=== PATIENT | male | born 1940 | race Caucasian/White ===

== ENCOUNTER → 2016-12-17 | Outpatient (CLI) | payer BC ==
[~2016-12-17] MED LIST: ALLO100T PO; ASPEC81 PO; CLC100 PO; CLR10 PO; FLUT0.15 NAE; LISI40TA PO; LPR25 PO; LPT40 PO; MULT-506 PO; PLV75 PO; PRAS1TAB6 PO; PRVHFAIN PO
[2016-12-17 12:14] LABS: HEMATOCRIT 45.2 % (42-52); MEAN CELL VOLUME 96.6 fL (80-100); MEAN CORPUSCULAR HEMOGLOBIN 30.6 pg (25-34); MEAN CORPUSCULAR HGB CONC 31.6 g/dl (32-36); MEAN PLATELET VOLUME 10.8 fL (7.4-10.4); PLATELET COUNT 276 K/uL (130-400); RED BLOOD COUNT 4.68 M/uL (4.7-6.1); WHITE BLOOD COUNT 6.69 K/uL (4.8-10.8)
[2016-12-17 12:40] LABS: AST/SGOT 34 U/L (15-37); BLOOD UREA NITROGEN 24 mg/dl (7-18); BUN/CREATININE RATIO 18.6 (10-20); CALCIUM 8.6 mg/dl (8.5-10.1); CARBON DIOXIDE 31 mmol/L (21-32); CHLORIDE 107 mmol/L (98-107); GLUCOSE 102 mg/dl (70-99); POTASSIUM 4.1 mmol/L (3.5-5.1); SODIUM 143 mmol/L (136-145)
[2016-12-17 12:42] LABS: URINE PROTIEN/CREAT RATIO 0.1 (0-0.2)
[2016-12-17 12:42] LABS: ALB/GLOB RATIO 1.1 (0.9-2); ALKALINE PHOSPHATASE 92 U/L (45-117); ALT/SGPT 43 U/L (12-78); CHOLESTEROL 154 mg/dl (0-200); CHOLESTEROL/HDL RATIO 1.8; HDL CHOLESTEROL 85 mg/dl; LDL CHOLESTEROL CALCULATED 41 mg/dl; TRIGLYCERIDES 138 mg/dl (0-150); VERY LOW DENSITY LIPOPROT CALC 28 mg/dl
== END | disposition home or self-care (01) ==
LOC: C.LABPVFM 08:02
PROVIDERS: ATTEND Family Medicine
DX: I25.10 Atherosclerotic heart disease of native coronary artery without angina pectoris (principal); I10 Essential (primary) hypertension; E78.00 Pure hypercholesterolemia, unspecified; N18.3 Chronic kidney disease, stage 3 (moderate); M1A.9XX0 Chronic gout, unspecified, without tophus (tophi); J44.9 Chronic obstructive pulmonary disease, unspecified; R73.9 Hyperglycemia, unspecified

== ENCOUNTER 2016-12-19 13:53 | Emergency (ER) | payer BC ==
[~2016-12-19] VITALS: Ht 170.2 cm; Wt 68.9 kg
[~2016-12-19 13:53] MED LIST changes: -CLR10 PO; -FLUT0.15 NAE; -PRAS1TAB6 PO; -PRVHFAIN PO
[2016-12-19 14:03] VITALS: TEMP 37.2; Ht 170.2 cm; Wt 68.9 kg
[2016-12-19 15:40] LABS: BASO % 0.4 %; BASO ABS # 0.03 K/uL (0-0.2); COMPLETE YES; EOS % 3.2 %; HEMATOCRIT 47.5 % (42-52); LYMPH % 17.3 %; LYMPH ABS # 1.35 K/uL (1.2-3.4); MEAN CELL VOLUME 95.2 fL (80-100); MEAN CORPUSCULAR HEMOGLOBIN 30.3 pg (25-34); MEAN CORPUSCULAR HGB CONC 31.8 g/dl (32-36); MEAN PLATELET VOLUME 10.4 fL (7.4-10.4); MONO % 10.4 %; NEUT % 68.7 %; PLATELET COUNT 248 K/uL (130-400); RED BLOOD COUNT 4.99 M/uL (4.7-6.1); WHITE BLOOD COUNT 7.79 K/uL (4.8-10.8)
--- NOTE | 2016-12-19 15:53 | DIAGNOSTIC IMAGING REPORT ---
CHEST ONE VIEW PORTABLE HISTORY: severe hypertension COMPARISON: Chest 11/27/2015. FINDINGS: The heart is borderline enlarged. The lungs are clear. No pleural effusions. No pneumothorax. IMPRESSION: Borderline cardiomegaly. Otherwise, no acute process within the chest. Electronically signed by: Dae Martinez M.D. 12/19/2016 3:51 PM Dictated Date/Time: 12/19/2016 3:50 PM
[2016-12-19 15:54] LABS: PARTIAL THROMBOPLASTIN RATIO 1.1; PROTHROMBIN TIME (PATIENT) 10.8 SECONDS (9.0-12.0)
--- NOTE | 2016-12-19 15:56 | DIAGNOSTIC IMAGING REPORT ---
CT SCAN OF THE BRAIN WITHOUT IV CONTRAST CLINICAL HISTORY: Headache. Hypertension. COMPARISON STUDY: No priors. TECHNIQUE: Unenhanced axial CT scan of the brain is performed from the vertex to the skull base. CT DOSE: 537.48 mGy.cm FINDINGS: Brain parenchyma: There are age-related involutional changes noting mild subcortical and periventricular microangiopathic change. There is no hemorrhage, mass effect, or evidence of acute territorial ischemia by CT criteria. Raza-white matter is preserved. No extra-axial fluid collection is seen. Ventricles, sulci, cisterns: Prominent secondary to involutional change. Intracranial vasculature: There is atherosclerotic calcification of the cavernous carotid and vertebral arteries. Calvarium: Unremarkable. Sinuses and mastoids: The visualized paranasal sinuses are clear. The mastoid air cells are well pneumatized. Orbits: The bony orbits are grossly intact. IMPRESSION: There is no hemorrhage, mass effect, or evidence of acute territorial ischemia by CT criteria. Electronically signed by: Davi Balbuena M.D. 12/19/2016 3:55 PM Dictated Date/Time: 12/19/2016 3:53 PM
[2016-12-19 15:59] LABS: ALT/SGPT 33 U/L (12-78); AST/SGOT 20 U/L (15-37); BLOOD UREA NITROGEN 26 mg/dl (7-18); BUN/CREATININE RATIO 18.5 (10-20); CALCIUM 8.8 mg/dl (8.5-10.1); CARBON DIOXIDE 30 mmol/L (21-32); CHLORIDE 107 mmol/L (98-107); GLUCOSE 112 mg/dl (70-99); POTASSIUM 4.1 mmol/L (3.5-5.1); SODIUM 142 mmol/L (136-145)
[2016-12-19 16:10] LABS: ALKALINE PHOSPHATASE 93 U/L (45-117)
[2016-12-19] MEDS ORDERED: FLUT0.15 NAE (16:17)
[2016-12-19] MEDS ORDERED: PRAS1TAB6 PO (16:17)
[2016-12-19] MEDS ORDERED: CLR10 PO (16:17)
[2016-12-19] MEDS ORDERED: PRVHFAIN PO (16:18)
[2016-12-19 16:37] LABS: LYME DISEASE AB IGM NEG (NEG)
[2016-12-19 16:40] LABS: LYME DISEASE AB IGG NEG (NEG)
[2016-12-19 17:35] LABS: URINE APPEARANCE CLEAR (CLEAR); URINE BILIRUBIN NEG (NEG); URINE COLOR YELLOW; URINE NITRITE NEG (NEG); URINE SPECIFIC GRAVITY 1.021 (1.000-1.030); UROBILINOGEN NEG (NEG)
[2016-12-19 17:36] LABS: MANUAL MICROSCOPIC REQUIRED? NO; REVIEW REQ? NO
[2016-12-19] MEDS ORDERED: HydrALAZINE HCL 20 MG/ML VIAL IV. STA (18:08)
[2016-12-19] MEDS ORDERED: OPTIRAY 320 IV PRN (19:00)
--- NOTE | 2016-12-19 19:26 | DIAGNOSTIC IMAGING REPORT ---
CTA ANGIOGRAPHY OF THE HEAD CLINICAL HISTORY: Headache. Hypertension. COMPARISON STUDY: Head CT performed earlier today. TECHNIQUE: Helical axial images of the head were obtained following uneventful intravenous administration of 102 cc of Optiray 320. CT DOSE: 142.06 mGy.cm FINDINGS: No acute intracranial hemorrhage, midline shift or mass effect is present. Ventricular system is normal. Basilar cisterns are patent. There is moderate plaque within the bilateral cavernous carotids with mild stenosis. No intracranial aneurysm is identified. There is no abrupt vessel cut off. 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 The posterior circulation is also intact. There is no evidence for dissection within the major intracranial vessels. IMPRESSION: 1. No intracranial aneurysm or abrupt vessel cutoff. 2. Moderate atherosclerotic plaque within the bilateral cavernous carotids. No high-grade stenosis. Electronically signed by: Ronnell Dyer M.D. 12/19/2016 7:25 PM Dictated Date/Time: 12/19/2016 7:15 PM
[2016-12-19 21:28] VITALS: BP 180/89; PULSE 56; O2SAT 96
--- NOTE | 2016-12-20 00:31 | EMERGENCY ROOM VISIT NOTE ---
History Report prepared by Vik: Amandeep Ybarra Under the Supervision of: Dr. Raoul De Souza M.D. First contact with patient: 15:13 Chief Complaint: HYPERTENSION Stated Complaint: HIGH BLOOD PRESSURE History of Present Illness The patient is a 76 year old male who presents to the Emergency Room with complaints of sudden hypertension beginning just prior to arrival. He currently rates his discomfort as a 6/10 in severity. The patient associates an intermittent headache and congestion with today's symptoms. He states he was referred to the ED by his physician, in which, he had an appointment for a regular check up. At the appointment, the patient was hypertensive with a blood pressure of 220/100 after his regular morning medication. The patient notes a history of coronary artery disease. He states he has been taking Claritin D and Flonase for the past two weeks for his congestion. The patient notes his blood pressure usually run 120-130 systolic with occasional highs of 140. He states he took his medication two nights ago, and his blood pressure was 113/60. The patient notes he took two Tylenol and an ibuprofen yesterday that relieved his headache. He states he found a tick on himself 2-3 weeks ago, but he does not know how long it was on him for. The patient notes the tick appeared it was ready to fall off by the time he found it. He states he has a history of a heart attack one year ago, in which, he had one stent placed. Pt denies LOC, diaphoresis, visual changes, neck pain, chest pain, breathing difficulties, nausea, vomiting, abdominal pain, back pain, melena, hematochezia, urinary symptoms, numbness, weakness, lymphadenopathy, rash, or other complaints. Source of History: patient Onset: just prior to arrival Position: other (global) Symptom Intensity: 6/10 Quality: other Timing: other (sudden) Associated Symptoms: + headache Note: Associated symptoms: congestion. Review of Systems See HPI for pertinent positives and negatives. A total of ten systems were reviewed and were otherwise negative. Past Medical & Surgical Medical Problems: (1) CAD (coronary artery disease) (2) HTN (hypertension) (3) NSTEMI, initial episode of care (4) PAC (premature atrial contraction) Surgical Problems: (1) H/O percutaneous transluminal coronary angioplasty (2) Stented coronary artery Family History Diabetes mellitus Hypertension Social History Smoking Status: Former Smoker Drug Use: none Marital Status: Housing Status: lives with family Current/Historical Medications Scheduled Allopurinol (Zyloprim), 100 MG PO DAILY Aspirin (Aspirin EC Low Dose), 81 MG PO QAM Atorvastatin (Atorvastatin Calcium), 40 MG PO QAM Fluticasone Propionate (Nasal) (Flonase Allergy Relief), 1 SPRAY FLACO DAILY Lisinopril (Zestril), 20 MG PO BID Metoprolol Tartrate (Lopressor), 25 MG PO BID Prasugrel Hcl (Effient), 10 MG PO 2XWK Scheduled PRN Albuterol (Ventolin Hfa), 2 PUFF PO DIRECTED PRN for Shortness of Breath Loratadine (Claritin), 10 MG PO DAILY PRN for PRN Allergies Coded Allergies: Clopidogrel (Verified Allergy, Intermediate, rash, 12/19/16) Physical Exam Vital Signs Date Time Temp Pulse Resp B/P Pulse Ox O2 Delivery O2 Flow Rate FiO2 12/19/16 21:28 56 18 180/89 96 Room Air 12/19/16 21:08 57 18 177/80 96 12/19/16 20:05 54 18 163/77 99 Room Air 12/19/16 18:31 57 18 181/71 98 Room Air 12/19/16 17:24 50 18 192/83 99 Room Air 12/19/16 16:01 49 18 174/113 99 Room Air 12/19/16 15:33 Room Air 12/19/16 15:29 64 12/19/16 14:03 37.2 50 20 183/81 95 Room Air Physical Exam GENERAL: Awake, alert, well-appearing, in no distress HENT: Normocephalic, atraumatic. Oropharynx unremarkable. EYES: Normal conjunctiva. Sclera non-icteric. NECK: Supple. No nuchal rigidity. FROM. No JVD. RESPIRATORY: Clear to auscultation. CARDIAC: Regular rate, normal rhythm. Extremities warm and well perfused. Pulses equal. ABDOMEN: Soft, non-distended. No tenderness to palpation. No rebound or guarding. No masses. RECTAL: Deferred. MUSCULOSKELETAL: Chest examination reveals no tenderness. The back is symmetrical on inspection without obvious abnormality. There is no CVA tenderness to palpation. No joint edema. LOWER EXTREMITIES: Calves are equal size bilaterally and non-tender. No edema. No discoloration. NEURO: Normal sensorium. No sensory or motor deficits noted. SKIN: No rash or jaundice noted. Medical Decision & Procedures ER Provider Diagnostic Interpretation: X ray results as stated below per my interpretation and radiologist interpretation. Other radiology results as stated below per my review and radiologist interpretation CHEST ONE VIEW PORTABLE HISTORY: severe hypertension COMPARISON: Chest 11/27/2015. FINDINGS: The heart is borderline enlarged. The lungs are clear. No pleural effusions. No pneumothorax. IMPRESSION: Borderline cardiomegaly. Otherwise, no acute process within the chest. Electronically signed by: Dae Martinez M.D. 12/19/2016 3:[address] SCAN OF THE BRAIN WITHOUT IV CONTRAST CLINICAL HISTORY: Headache. Hypertension. COMPARISON STUDY: No priors. TECHNIQUE: Unenhanced axial CT scan of the brain is performed from the vertex to the skull base. CT DOSE: 537.48 mGy.cm FINDINGS: Brain parenchyma: There are age-related involutional changes noting mild subcortical and periventricular microangiopathic change. There is no hemorrhage, mass effect, or evidence of acute territorial ischemia by CT criteria. Raza-white matter is preserved. No extra-axial fluid collection is seen. Ventricles, sulci, cisterns: Prominent secondary to involutional change. Intracranial vasculature: There is atherosclerotic calcification of the cavernous carotid and vertebral arteries. Calvarium: Unremarkable. Sinuses and mastoids: The visualized paranasal sinuses are clear. The mastoid air cells are well pneumatized. Orbits: The bony orbits are grossly intact. IMPRESSION: There is no hemorrhage, mass effect, or evidence of acute territorial ischemia by CT criteria. Electronically signed by: Davi Balbuena M.D. 12/19/2016 3:55 PM CTA ANGIOGRAPHY OF THE HEAD CLINICAL HISTORY: Headache. Hypertension. COMPARISON STUDY: Head CT performed earlier today. TECHNIQUE: Helical axial images of the head were obtained following uneventful intravenous administration of 102 cc of Optiray 320. CT DOSE: 142.06 mGy.cm FINDINGS: No acute intracranial hemorrhage, midline shift or mass effect is present. Ventricular system is normal. Basilar cisterns are patent. There is moderate plaque within the bilateral cavernous carotids with mild stenosis. No intracranial aneurysm is identified. There is no abrupt vessel cut off. 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 The posterior circulation is also intact. There is no evidence for dissection within the major intracranial vessels. IMPRESSION: 1. No intracranial aneurysm or abrupt vessel cutoff. 2. Moderate atherosclerotic plaque within the bilateral cavernous carotids. No high-grade stenosis. Electronically signed by: Ronnell Dyer M.D. 12/19/2016 7:25 PM Laboratory Results 12/19/16 15:20 Red Blood Count 4.99, Mean Corpuscular Volume 95.2, Mean Corpuscular Hemoglobin 30.3, Mean Corpuscular Hemoglobin Concent 31.8, Mean Platelet Volume 10.4, Neutrophils (%) (Auto) 68.7, Lymphocytes (%) (Auto) 17.3, Monocytes (%) (Auto) 10.4, Eosinophils (%) (Auto) 3.2, Basophils (%) (Auto) 0.4, Neutrophils # (Auto ) 5.35, Lymphocytes # (Auto) 1.35, Monocytes # (Auto) 0.81, Eosinophils # (Auto ) 0.25, Basophils # (Auto) 0.03 12/19/16 15:20 Test 12/19/16 15:20 12/19/16 17:20 White Blood Count 7.79 K/uL (4.8-10.8) Red Blood Count 4.99 M/uL (4.7-6.1) Hemoglobin 15.1 g/dL (14.0-18.0) Hematocrit 47.5 % (42-52) Mean Corpuscular Volume 95.2 fL (80-100) Mean Corpuscular Hemoglobin 30.3 pg (25-34) Mean Corpuscular Hemoglobin Concent 31.8 g/dl (32-36) Platelet Count 248 K/uL (130-400) Mean Platelet Volume 10.4 fL (7.4-10.4) Neutrophils (%) (Auto) 68.7 % Lymphocytes (%) (Auto) 17.3 % Monocytes (%) (Auto) 10.4 % Eosinophils (%) (Auto) 3.2 % Basophils (%) (Auto) 0.4 % Neutrophils # (Auto) 5.35 K/uL (1.4-6.5) Lymphocytes # (Auto) 1.35 K/uL (1.2-3.4) Monocytes # (Auto) 0.81 K/uL (0.11-0.59) Eosinophils # (Auto) 0.25 K/uL (0-0.5) Basophils # (Auto) 0.03 K/uL (0-0.2) RDW Standard Deviation 45.6 fL (36.4-46.3) RDW Coefficient of Variation 13.2 % (11.5-14.5) Immature Granulocyte % (Auto) 0.0 % Immature Granulocyte # (Auto) 0.00 K/uL (0.00-0.02) Prothrombin Time 10.8 SECONDS (9.0-12.0) Prothromb Time International Ratio 1.0 (0.9-1.1) Activated Partial Thromboplast Time 27.3 SECONDS (21.0-31.0) Partial Thromboplastin Ratio 1.1 Anion Gap 5.0 mmol/L (3-11) Est Creatinine Clear Calc Drug Dose 40.7 ml/min Estimated GFR () 55.4 Estimated GFR (Non- 47.8 BUN/Creatinine Ratio 18.5 (10-20) Calcium Level 8.8 mg/dl (8.5-10.1) Total Bilirubin 0.4 mg/dl (0.2-1) Direct Bilirubin 0.1 mg/dl (0-0.2) Aspartate Amino Transf (AST/SGOT) 20 U/L (15-37) Alanine Aminotransferase (ALT/SGPT) 33 U/L (12-78) Alkaline Phosphatase 93 U/L (45-117) Total Creatine Kinase 50 U/L (39-308) Creatine Kinase MB < 0.5 ng/ml (0.5-3.6) Creatine Kinase MB Ratio (0-3.0) Troponin I < 0.015 ng/ml (0-0.045) Total Protein 7.0 gm/dl (6.4-8.2) Albumin 3.7 gm/dl (3.4-5.0) Lipase 105 U/L (73-393) Thyroid Stimulating Hormone (TSH) 1.420 uIu/ml (0.300-4.500) Lyme Disease IgG Antibody NEG (NEG) Lyme Disease IgM Antibody NEG (NEG) Urine Color YELLOW Urine Appearance CLEAR (CLEAR) Urine pH 5.0 (4.5-7.5) Urine Specific [place] 1.021 (1.000-1.030) Urine Protein NEG (NEG) Urine Glucose (UA) NEG (NEG) Urine Ketones NEG (NEG) Urine Occult Blood NEG (NEG) Urine Nitrite NEG (NEG) Urine Bilirubin NEG (NEG) Urine Urobilinogen NEG (NEG) Urine Leukocyte Esterase SMALL (NEG) Urine WBC (Auto) 1-5 /hpf (0-5) Urine RBC (Auto) 0-4 /hpf (0-4) Urine Hyaline Casts (Auto) 1-5 /lpf (0-5) Urine Epithelial Cells (Auto) 10-20 /lpf (0-5) Urine Bacteria (Auto) NEG (NEG) Laboratory results reviewed by me Medications Administered Medications (Trade) Dose Ordered Sig/Alfredo Route Start Time Stop Time Status Last Admin Dose Admin Hydralazine HCl (HydrALAZINE INJ) 10 mg NOW STAT IV. 12/19/16 18:08 12/19/16 18:09 DC 12/19/16 18:19 10 MG ECG Indication: other (hypertension) Rate (beats per minute): 50 Rhythm: sinus bradycardia Findings: no acute ischemic change, no ectopy ED Course 1523: The patient was evaluated in room A3. A complete history and physical exam was performed. 1757: Reevaluated and updated the patient at this time, and he is feeling well. The patient notes he does not have symptoms when sitting down, but experienced some headache pains when standing up. 1804: Updated the patient at this time to let him know about the orders for extra imaging. 1807: Ordered Hydralazine HCl 10 mg IV. 1958: Reevaluated the patient, and he is asymptomatic. The patient's blood pressure is 163/77, and he is able to stand up without symptoms. 2035: I spoke to JENNIE Singleton (Cardiology) about the patients case, and he recommended having the patient follow up in the office on Thursday. He also recommended having the patient check his blood pressure at home during the interim. 2052: I reevaluated the patient. Discussed results and discharge instructions: He verbalized understanding and agreement. The patient is ready for discharge. Medical Decision Prior records/ancillary studies reviewed regarding the history above. Triage Nursing notes reviewed and agree them. Additional history obtained from the family. The patient's history was concerning for hypertension and intermittent headache. Differential diagnosis: Etiologies such as hypertensive urgency, hypertensive emergency, benign hypertension, cardiovascular pathology, pheochromocytoma, electrolyte abnormality, renal disease, endorgan damage, sinusitis, migraine, meningitis, ICH, as well as others were entertained. Physical examination: As above. No focal neurologic findings. Clinically the patient looked well. ER treatment provided: IV hydralazine was good control of blood pressure On reassessment the patient felt better. Diagnostic interpretation by me: The electrocardiogram was negative for pathologic change. The labs revealed an unremarkable CBC, coags, chemistry panel, LFTs, TSH, cardiac markers, urinalysis, and Lyme screen Imaging studies: CT scans as above The patient presented with complaints of headache and hypertension. He had significant elevations of his blood pressure in the office and was significantly hypertensive here. The patient takes twice daily metoprolol as well as lisinopril. Initially he was not given any antihypertensives and was observed. His blood pressure did fluctuate somewhat and came down but was still quite high. Without analgesia his headache was nearly resolved. After treatment of his blood pressure the patient had really no symptoms. He stated that only with standing when he feels some pressure in his head. He has no meningeal findings. Patient has no fever. He has no evidence of sinusitis. He is smiling, in good spirits and neurologically intact. I discussed consultation with cardiology and conservative management and the patient and were in agreement. Because of volume in the emergency department the patient was observed for over 7 hours and did exceptionally well. Consultation: A consultation was placed with cardiology, Dr. Walls. The case was discussed and diagnostics were reviewed. As the patient's blood pressure is under control at this point in time he recommended no change to his outpatient management however he would like for him to take his blood pressure several times per day through the weekend and have him follow-up. He recommended if he has any worsening symptoms to have him come back to the emergency department. The patient felt very comfortable with this plan and would prefer to be discharged. By the evaluation outlined above emergent etiologies such as hypertensive emergency, pheochromocytoma, endorgan damage, cardiac ischemia, aortic dissection, pulmonary embolism, pneumonia, pneumothorax, infections, gastrointestinal, meningitis, ICH, aneurysm, subarachnoid hemorrhage, as well as others were deemed relatively unlikely. The patient and for informed about the findings as listed above. All questions were answered and they were pleased with the treatment. Return instructions were outlined and the patient was discharged in stable condition. Outpatient prescription management: No change Referral: The patient was referred back to cardiology on Thursday for a recheck of the current condition. The chart was completed utilizing [employer] Speech voice recognition software. Grammatical errors, random word insertions, pronoun errors, and incomplete sentences are an occasional consequence of this system due to software limitations, ambient noise, and hardware issues. Any formal questions or concerns about the content, text, or information contained within the body of this dictation should be directly addressed to the physician for clarification. Consults Time Called: 2001 Consulting Physician: JENNIE Singleton (Cardiology) Returned Call: [phone] I spoke to JENNIE Singleton (Cardiology) about the patients case, and he recommended having the patient follow up in the office on Thursday. He also recommended having the patient check his blood pressure at home during the interim. Impression Primary Impression: HTN (hypertension) Additional Impression: Headache Scribe Attestation The scribe's documentation has been prepared under my direction and personally reviewed by me in its entirety. I confirm that the note above accurately reflects all work, treatment, procedures, and medical decision making performed by me. Departure Information Dispostion Home / Self-Care Referrals No Doctor, Assigned (PCP) Forms HOME CARE DOCUMENTATION FORM, IMPORTANT VISIT INFORMATION, WORK / SCHOOL INSTRUCTIONS Patient Instructions My [facility] Additional Instructions Continue current medications. Follow up with cardiology on Thursday. Monitor blood pressure at home 3-4 times daily. Record this for cardiology. If blood pressure is persistently elevated beyond 190 on the top number and 100 for the bottom number return to the Emergency Room for reevaluation. Return to the ER for chest pain, headache, passing out, difficulty breathing, fevers, severe neck pain, numbness, tingling, worsening of your condition, or as needed. Problem Qualifiers Primary Impression: HTN (hypertension) Hypertension type: unspecified secondary hypertension Qualified Codes: I15.9 - Secondary hypertension, unspecified Additional Impression: Headache Headache type: unspecified Headache chronicity pattern: episodic headache Intractability: not intractable Qualified Codes: R51 - Headache
== END 2016-12-19 21:40 | disposition home or self-care (01) ==
LOC: C.EDB 13:56 → C.EDA 21:40
DX: I15.9 Secondary hypertension, unspecified (principal); R51 Headache; I25.10 Atherosclerotic heart disease of native coronary artery without angina pectoris; I25.2 Old myocardial infarction; Z83.3 Family history of diabetes mellitus; Z82.49 Family history of ischemic heart disease and other diseases of the circulatory system; Z87.891 Personal history of nicotine dependence; Z79.82 Long term (current) use of aspirin; Z79.899 Other long term (current) drug therapy

== ENCOUNTER → 2016-12-24 | Outpatient (CLI) | payer BC ==
[~2016-12-24] MED LIST changes: -CLC100 PO; +CLR10 PO; +FLUT0.15 NAE; -MULT-506 PO; -PLV75 PO; +PRAS1TAB6 PO; +PRVHFAIN PO
== END | disposition home or self-care (01) ==
LOC: C.LABPVFM 13:12
PROVIDERS: ATTEND Family Medicine
DX: I10 Essential (primary) hypertension (principal)

== ENCOUNTER → 2016-12-26 | Outpatient (CLI) | payer BC ==
--- NOTE | 2016-12-31 06:15 | CODING QUERY MEDICAL NECESSITY ---
SUPPORTING DIAGNOSIS NEEDED Dr. Orta, A supporting diagnosis is required for the test/procedure performed on this patient in order for us to be reimbursed by the patient's insurance. Please provide a supporting diagnosis for the following test/procedure listed below next to the test name along with your signature. *If there is no additional diagnosis for this patient that would support the following test/procedure please document that below next to the test/procedure. Test(s)/Procedure(s) that require a supporting diagnosis: * ([id number]) VITAMIN D ASSAY DIAGNOSIS: DATE OF SERVICE: 12/26/16 Provider Signature: Date: Thank you Tung Deleon [facility] Information Management Once completed, please kindly fax back to [phone] For questions please call [phone]
== END | disposition home or self-care (01) ==
LOC: C.LABPVFM 07:41
PROVIDERS: ATTEND Family Medicine
DX: E34.9 Endocrine disorder, unspecified (principal); E55.9 Vitamin D deficiency, unspecified

== ENCOUNTER → 2016-12-30 | Outpatient (CLI) | payer BC ==
--- NOTE | 2016-12-30 09:44 | DIAGNOSTIC IMAGING REPORT ---
DUPLEX RENAL ARTERY ULTRASOUND CLINICAL HISTORY: Hypertension. COMPARISON STUDY: None. FINDINGS: The peak systolic velocity within the mid right renal artery was 126 cm/s and within the mid left renal artery was 77 cm/s. The peak systolic velocity within the abdominal aorta was 88 cm/s. Bilateral renal veins are patent. Bilateral renal arcuate artery resistive indices were less than 0.78. IMPRESSION: No hemodynamically significant stenosis seen within the bilateral renal arteries. Electronically signed by: Dae Martinez M.D. 12/30/2016 9:43 AM Dictated Date/Time: 12/30/2016 9:41 AM
--- NOTE | 2016-12-30 09:47 | DIAGNOSTIC IMAGING REPORT ---
RENAL ULTRASOUND HISTORY: Hypertension. COMPARISON: Renal ultrasound 03/28/2015. FINDINGS: Right kidney: 9.4 cm. No hydronephrosis. Normal cortical thickness for age. Slight increased cortical echogenicity. A 7 mm cyst. Left kidney: 10.2 cm. No hydronephrosis. Normal cortical thickness for age. Slight increased cortical echogenicity. Bladder: The prostate gland is enlarged measuring 5.3 cm. Bladder trabeculation with a few small right-sided bladder diverticula. The bilateral ureteral jets were identified. IMPRESSION: 1. Slight increased cortical echogenicity bilaterally suggestive of mild medical renal disease. 2. No hydronephrosis. 3. The prostate is enlarged and there is mild bladder trabeculation with a few small right-sided bladder diverticula. Electronically signed by: Dae Martinez M.D. 12/30/2016 9:46 AM Dictated Date/Time: 12/30/2016 9:43 AM
== END | disposition home or self-care (01) ==
LOC: C.ULTR 08:36
PROVIDERS: ATTEND Family Medicine
DX: I10 Essential (primary) hypertension (principal)

== ENCOUNTER 2022-08-30 14:22 | Observation (INO) ==
--- NOTE | 2022-08-30 14:59 | Emergency Department Note ---
Impression & Plan Symptomatic bradycardia, Dizziness ED Provider Note NAME: ROCK JAUREGUI AGE: 82 SEX: M : 1940 ARRIVES VIA: Walk-In INFORMANT: Patient, ED PROVIDER(S): Max Alvarez DO CHIEF COMPLAINT: lightheaded HPI: Patient is an 82-year-old male with a past medical history of CKD, CAD, hyperlipidemia who presents to the ER for dizziness and weakness with exertion. This has beginning worse over the past 2 to 3 weeks. He notes when he rests it goes away. He checked his blood pressure today and could not read his heart rate and consequently came in. He did schedule appointment with cardiology but has not for 2 weeks. No belly pain, nausea, vomiting, or diarrhea. No dysuria, urgency, or frequency. No other exacerbating or remitting factors. PAST MEDICAL HISTORY:See Below PAST SURGICAL HISTORY:See Below FAMILY HISTORY:See Below SOCIAL HISTORY:See Below HOME MEDICATIONS:See Below ALLERGIES:See Below VITALS:See Below PHYSICAL EXAMINATION: GENERAL: Sitting up in bed, alert, well appearing, well nourished, no distress, non-toxic EYE EXAM: normal conjunctiva. OROPHARYNX: no exudate, no erythema, lips, buccal mucosa, and tongue normal and mucous membranes are moist NECK: supple, no nuchal rigidity, no adenopathy, non-tender LUNGS: Clear to auscultation. Normal chest wall mechanics HEART: no murmurs, S1 normal and S2 normal ABDOMEN: abdomen soft, non-tender, normo-active bowel sounds, no masses, no rebound or guarding. UPPER EXTREMITIES: upper extremities are grossly normal. LOWER EXTREMITIES: No pitting edema. Calf cervical bilateral NEURO EXAM: Normal sensorium, cranial nerves II-XII grossly intact, normal speech, no gross weakness of arms, no gross weakness of legs. MEDICAL DECISION MAKING: Patient is an 82-year-old male who presents the ER for feeling lightheaded which is getting worse over the past several weeks. IV was established blood work was obtained. External records were reviewed. Labs show no significant leukocytosis or anemia. BMP with a creatinine 1.68 which is up from a baseline of 1.3. No transaminitis. Troponin was negative. Lipase normal. COVID was negative. Chest x-ray shows no focal infiltrate. EKG did show sinus rhythm at a rate of 64 although with the PVCs which were not conducting rate was only about 30. Patient was symptomatic with this. Based on the patient's presentation complaint and EKG I felt this patient reviewed best served as an inpatient. I discussed all this with Dr. Belle in regards to further work-up and admission and he was agreeable to seeing the patient. Triage Nursing notes reviewed. Limited review of prior medical records performed Vital Signs: reviewed and remarkable for HTN Differential diagnosis: Cardiac ischemia, aortic dissection, pulmonary embolism, pneumothorax, pneumonia, pericarditis, myocarditis, esophageal rupture, GERD, cholecystitis, pancreatitis, musculoskeletal, as well as other pathologies. ER treatment provided: See below Diagnostics interpreted by me include EKG and cardiac monitoring as listed below: -Cardiac Monitoring: An order was placed for continuous cardiac monitoring. The monitor shows a rate of 70 with sinus rhythm. -ECG: Sinus rhythm with bigeminy rate is 60 Normal axis Is present QTC 466 -Laboratory studies:Interpreted by me as stated above in MDM and shown below. Imaging studies: Xrays: As interpreted by me: Portable AP upright 1 view the chest was unremarkable CTs show: none Consultation(s): As described in MDM Procedures:none Critical Care: None Past Med/Surg History Medical History Acid reflux disease Acute bronchitis with bronchospasm Allergic rhinitis Atrioventricular block Benign prostatic hyperplasia with elevated prostate specific antigen (PSA) Benign prostatic hyperplasia with urinary obstruction Bloated abdomen Bronchospasm CAD S/P percutaneous coronary angioplasty Chest tightness Chronic gout Colonic fistula COPD, mild Cough Diverticulosis of colon Elevated blood sugar level Elevated parathyroid hormone Encounter for long-term (current) use of medications Hearing loss HTN (hypertension) Hypercholesterolemia Impotence, organic Lower resp. tract infection Medication monitoring encounter Nodular prostate with urinary obstruction PAC (premature atrial contraction) Premature atrial complex Screening for colon cancer Small intestinal bacterial overgrowth Stage III chronic kidney disease Symptomatic bradycardia Surgical History H/O inguinal hernia repair H/O percutaneous transluminal coronary angioplasty History of colon surgery Stented coronary artery Family History Mother Colorectal cancer Denies family history of Ovarian cancer Prostate cancer Myocardial infarction Breast cancer Social History (Reviewed 06/16/22 @ 10:00 by DEEPTI Pineda Smoking Status: Never smoker Tobacco Type: Pipe and Cigars Age Started Using Tobacco: 28; Age Quit Using Tobacco: 48; Second Hand Exposure: No; Hx Alcohol Use: Yes Hx Substance Use: No Preferred Language: Urdu Communication Ability: Effective Hearing Ability: Use of Hearing Aid Frame Catcher Required: No marital status: Current Living Situation: Spouse current occupational status: retired How many Children do You have: 4 Feels Safe at Home: Yes Childhood Exposure to Second-Hand Smoke: No caffeine: No Dental Care, Regularly: Yes Physical Activity Frequency: Daily Seatbelt Use: always Sunscreen Use: No Allergies Allergies Allergy/AdvReac Type Severity Reaction Status Date / Time clopidogrel Allergy Intermediate rash Verified 08/30/22 17:39 grass pollen Allergy Unknown Congested Verified 08/30/22 17:39 weed pollen Allergy Unknown Congested Verified 08/30/22 17:39 Trees Allergy Unknown Congested Uncoded 08/30/22 17:39 Home Meds Home Medications Medication Instructions Recorded Confirmed albuterol sulfate 90 mcg/actuation 1 puffs inhalation Q6H PRN sob 03/09/19 08/30/22 aerosol inhaler (Ventolin HFA) aspirin 81 mg tablet,delayed 81 mg PO QAM 03/09/19 08/30/22 release (Adult Low Dose Aspirin) acetaminophen 500 mg capsule 1,000 mg PO Q4 PRN Fever Or Pain 03/17/19 08/30/22 cholecalciferol (vitamin D3) 25 1,000 units PO QAM 03/17/19 08/30/22 mcg (1,000 unit) capsule loratadine 10 mg tablet 10 mg PO DAILY PRN Allergy Symptoms 03/17/19 08/30/22 simethicone 80 mg chewable tablet 80 mg PO Q6 PRN bloating,gas 09/13/19 08/30/22 vit B complex 100 combo no.2 100 1 tab PO QAM 11/27/21 08/30/22 mg tablet,extended release (B-100 Complex ER) omeprazole 20 mg tablet,delayed 20 mg PO DAILY PRN Acid Reflux 06/16/22 08/30/22 release allopurinol 100 mg tablet 100 mg PO QAM 08/30/22 08/30/22 lisinopril 10 mg tablet 10 mg PO QAM 08/30/22 08/30/22 tamsulosin 0.4 mg capsule 0.4 mg PO QPM 08/30/22 08/30/22 Previous Rx's Medication Instructions Recorded metoprolol succinate 25 mg 12.5 mg PO DAILY #45 tabs 09/12/21 tablet,extended release 24 hr atorvastatin 40 mg tablet 40 mg PO QAM #90 tabs 11/21/21 fluticasone propionate 50 1 spray intranasal DAILY PRN 12/13/21 mcg/actuation nasal allergy symptoms #16 grams spray,suspension (Flonase Allergy Relief) Results & Data (ED) Vital Signs Vital Signs - 24 hr 08/30/22 14:29 08/30/22 14:49 08/30/22 14:50 Temperature 36.0 C L Temperature Source Temporal Artery Scan Pulse Rate 51 L Pulse Rate [Right Finger] Pulse Rate from SpO2 Sensor Respiratory Rate 20 Respiratory Effort / Characteristics Non-Labored Spontaneous Respiratory Depth Normal Respiratory Pattern Regular Blood Pressure 163/81 H Blood Pressure [Right Arm] Blood Pressure Mean 108 Blood Pressure Mean [Right Arm] Blood Pressure Position Sitting Pulse Oximetry 96 97 Oxygen Delivery Method Room Air Room Air Room Air Sepsis Recent Fever Within 48 Hours No Sepsis New/Unexplained Change in Mental Status No Sepsis Action Taken by Nursing No Action Required Pulse Oximetry Post Tiitration 95 08/30/22 14:50 08/30/22 14:58 08/30/22 14:58 Temperature Temperature Source Pulse Rate 58 L Pulse Rate [Right Finger] 69 Pulse Rate from SpO2 Sensor 57 L Respiratory Rate 27 H 18 Respiratory Effort / Characteristics Respiratory Depth Normal Respiratory Pattern Blood Pressure 190/75 H Blood Pressure [Right Arm] 182/67 H Blood Pressure Mean 113 Blood Pressure Mean [Right Arm] 105 Blood Pressure Position Pulse Oximetry 97 96 Oxygen Delivery Method Room Air Sepsis Recent Fever Within 48 Hours Sepsis New/Unexplained Change in Mental Status Sepsis Action Taken by Nursing Pulse Oximetry Post Tiitration 08/30/22 15:00 08/30/22 15:00 08/30/22 15:15 Temperature Temperature Source Pulse Rate 54 L 53 L Pulse Rate [Right Finger] Pulse Rate from SpO2 Sensor 54 L 53 L Respiratory Rate 20 23 Respiratory Effort / Characteristics Respiratory Depth Respiratory Pattern Blood Pressure 165/76 H Blood Pressure [Right Arm] Blood Pressure Mean 105 Blood Pressure Mean [Right Arm] Blood Pressure Position Pulse Oximetry 98 98 Oxygen Delivery Method Sepsis Recent Fever Within 48 Hours Sepsis New/Unexplained Change in Mental Status Sepsis Action Taken by Nursing Pulse Oximetry Post Tiitration 08/30/22 15:30 08/30/22 15:30 08/30/22 15:45 Temperature Temperature Source Pulse Rate 52 L 51 L Pulse Rate [Right Finger] Pulse Rate from SpO2 Sensor 56 L 51 L Respiratory Rate 16 20 Respiratory Effort / Characteristics Respiratory Depth Respiratory Pattern Blood Pressure 147/76 H Blood Pressure [Right Arm] Blood Pressure Mean 99 Blood Pressure Mean [Right Arm] Blood Pressure Position Pulse Oximetry 97 98 Oxygen Delivery Method Room Air Room Air Sepsis Recent Fever Within 48 Hours Sepsis New/Unexplained Change in Mental Status Sepsis Action Taken by Nursing Pulse Oximetry Post Tiitration 08/30/22 16:00 08/30/22 16:01 08/30/22 16:01 Temperature Temperature Source Pulse Rate 54 L Pulse Rate [Right Finger] Pulse Rate from SpO2 Sensor 51 L 54 L Respiratory Rate 21 18 Respiratory Effort / Characteristics Respiratory Depth Respiratory Pattern Blood Pressure 155/85 H Blood Pressure [Right Arm] Blood Pressure Mean 108 Blood Pressure Mean [Right Arm] Blood Pressure Position Pulse Oximetry 97 99 Oxygen Delivery Method Room Air Room Air Sepsis Recent Fever Within 48 Hours Sepsis New/Unexplained Change in Mental Status Sepsis Action Taken by Nursing Pulse Oximetry Post Tiitration 08/30/22 16:15 08/30/22 16:30 08/30/22 16:30 Temperature Temperature Source Pulse Rate 51 L 51 L Pulse Rate [Right Finger] Pulse Rate from SpO2 Sensor 51 L 51 L Respiratory Rate 14 18 Respiratory Effort / Characteristics Respiratory Depth Respiratory Pattern Blood Pressure 148/78 H Blood Pressure [Right Arm] Blood Pressure Mean 101 Blood Pressure Mean [Right Arm] Blood Pressure Position Pulse Oximetry 98 99 Oxygen Delivery Method Room Air Room Air Sepsis Recent Fever Within 48 Hours Sepsis New/Unexplained Change in Mental Status Sepsis Action Taken by Nursing Pulse Oximetry Post Tiitration 08/30/22 16:45 08/30/22 17:00 08/30/22 17:00 Temperature Temperature Source Pulse Rate 50 L 45 L Pulse Rate [Right Finger] Pulse Rate from SpO2 Sensor 50 L 49 L Respiratory Rate 19 15 Respiratory Effort / Characteristics Respiratory Depth Respiratory Pattern Blood Pressure 179/80 H Blood Pressure [Right Arm] Blood Pressure Mean 113 Blood Pressure Mean [Right Arm] Blood Pressure Position Pulse Oximetry 98 98 Oxygen Delivery Method Room Air Room Air Sepsis Recent Fever Within 48 Hours Sepsis New/Unexplained Change in Mental Status Sepsis Action Taken by Nursing Pulse Oximetry Post Tiitration Laboratory Data 08/30/22 14:46 08/30/22 14:46 Lab Results 08/30/22 08/30/22 08/30/22 Range/Units 14:46 14:46 14:48 WBC 7.35 (4.8-10.8) K/ul RBC 4.69 (4.63-6.08) M/uL Hgb 14.6 (14.0-18.0) g/dl Hct 43.9 (40.1-51.0) % MCV 93.6 (80.0-100.0) fL MCH 31.1 (25.0-34.0) pg MCHC 33.3 (32.0-36.0) g/dL RDW Std Deviation 43.7 (36.4-46.3) fL RDW Coeff of Rudy 12.8 (11.5-14.5) % Plt Count 256 (130-400) K/uL MPV 10.2 (9.4-12.4) fL Immature Gran % (Auto) 0.3 % Neut % (Auto) 61.6 % Lymph % (Auto) 22.6 % [place] % (Auto) 9.9 % Eos % (Auto) 4.4 % Baso % (Auto) 1.2 % Neut # (Auto) 4.53 (1.4-6.5) K/uL Lymph # (Auto) 1.66 (1.2-3.4) K/uL [place] # (Auto) 0.73 (0.24-0.82) K/uL Eos # (Auto) 0.32 (0-0.50) K/uL Baso # (Auto) 0.09 (0-0.2) K/uL Immature Gran # (Auto) 0.02 (0.00-0.02) K/uL Sodium 139 (136-145) mmol/L Potassium 4.4 (3.5-5.1) mmol/L Chloride 106 (98-107) mmol/L Carbon Dioxide 29 (21-32) mmol/L Anion Gap 4 (3-11) BUN 28 H (6-23) mg/dl Creatinine 1.68 H (0.6-1.4) mg/dl Est Cr Clr Drug Dosing 27.4 ml/min Est GFR ( Amer) 42.6 ml/min Est GFR (Non-Af Amer) 36.7 ml/min BUN/Creatinine Ratio 16.7 (10-20) Glucose 106 H (70-99(Fasting)) mg/dl Calcium 8.3 L (8.5-10.1) mg/dl Total Bilirubin 0.4 (0.2-1.0) mg/dl AST 33 (13-39) U/L ALT 37 (7-52) U/L Alkaline Phosphatase 76 (34-104) U/L Troponin I High Sens 10.0 (0-20) pg/ml Total Protein 6.7 (6.0-8.3) gm/dl Albumin 3.9 (3.4-5.0) gm/dl Globulin 2.8 (2.5-4.0) gm/dl Albumin/Globulin Ratio 1.4 (0.9-2) Lipase 20 (11-82) U/L SARS-CoV-2, RNA, NAAT NEGATIVE (NEGATIVE) Imaging Data Radiologist's Impression: Chest X-Ray 08/30/22 14:43 XR chest 1V portable HISTORY: 82 years-old Male Chest pain, nonspecific acute chest pain COMPARISON: Chest radiograph 12/19/2016 TECHNIQUE: AP view of the chest FINDINGS: Cardiac mediastinal and hilar silhouettes are within normal limits. Atherosclerosis of the aorta. No pneumothorax, pleural effusion, airspace consolidation or overt pulmonary edema. Degenerative changes of the shoulders and spine. IMPRESSION: No acute process. ACT 112: Negative or not required by law. The above report was generated using voice recognition software. It may contain grammatical, syntax or spelling errors. Electronically signed by: Joe Limon M.D. 08/30/2022 3:14 PM Discharge Plan Visit Data Chief Complaint: Bradycardia Stated Complaint: LOW HEART RATE ED Provider: Max Alvarez Discharge Problem: Symptomatic bradycardia, Dizziness Patient Disposition: Admitted As Inpatient Discharge Instructions Interventions: ED Discharge Assessment Last Done: 08/30/22 19:53
[2022-08-30 15:02] LABS: Basophils # (auto) 0.09 K/uL (0-0.2); Basophils % (auto) 1.2 %; Eosinophils # (auto) 0.32 K/uL (0-0.50); Eosinophils % (auto) 4.4 %; Hematocrit (blood only) 43.9 % (40.1-51.0); Hemoglobin 14.6 g/dl (14.0-18.0); Immature Granulocytes # (auto) 0.02 K/uL (0.00-0.02); Immature Granulocytes % (auto) 0.3 %; Lymphocytes # (auto) 1.66 K/uL (1.2-3.4); Lymphocytes % (auto) 22.6 %; Mean Corpuscular Hemoglobin 31.1 pg (25.0-34.0); Mean Corpuscular Hgb Conc 33.3 g/dL (32.0-36.0); Mean Corpuscular Volume 93.6 fL (80.0-100.0); Mean Platelet Volume 10.2 fL (9.4-12.4); Monocytes # (auto) 0.73 K/uL (0.24-0.82); Monocytes % (auto) 9.9 %; Neutrophils # (auto) 4.53 K/uL (1.4-6.5); Neutrophils % (auto) 61.6 %; Platelet Count 256 K/uL (130-400); RDW Coefficient of Variation 12.8 % (11.5-14.5); RDW Standard Deviation 43.7 fL (36.4-46.3); Red Blood Count 4.69 M/uL (4.63-6.08); White Blood Count 7.35 K/ul (4.8-10.8)
--- NOTE | 2022-08-30 15:16 | XRay Report ---
XR chest 1V portable HISTORY: 82 years-old Male Chest pain, nonspecific acute chest pain COMPARISON: Chest radiograph 12/19/2016 TECHNIQUE: AP view of the chest FINDINGS: Cardiac mediastinal and hilar silhouettes are within normal limits. Atherosclerosis of the aorta. No pneumothorax, pleural effusion, airspace consolidation or overt pulmonary edema. Degenerative changes of the shoulders and spine. IMPRESSION: No acute process. ACT 112: Negative or not required by law. The above report was generated using voice recognition software. It may contain grammatical, syntax o r spelling errors. Electronically signed by: Joe Limon M.D. 08/30/2022 3:14 PM
[2022-08-30 15:23] LABS: Albumin Globulin Ratio 1.4 (0.9-2); Albumin Level 3.9 gm/dl (3.4-5.0); BUN Creatinine Ratio 16.7 (10-20); Bilirubin,Total 0.4 mg/dl (0.2-1.0); Calcium 8.3 mg/dl (8.5-10.1); Creatinine Clr Calc Pharmacy 27.4 ml/min; Est GFR (African American) 42.6 ml/min; Est GFR (Non-African American) 36.7 ml/min; Globulin 2.8 gm/dl (2.5-4.0); Potassium 4.4 mmol/L (3.5-5.1); Total Protein 6.7 gm/dl (6.0-8.3)
--- NOTE | 2022-08-30 16:31 | History & Physical Report ---
Date of Service August 30, 2022 Assessment & Plan (1) Symptomatic bradycardia: Plan: Symptomatic bradycardia - 2 weeks of exercise intolerance, fatigue, intermittent lightheadedness. 1 episode of neck tightness which resolved, denies any chest pain/chest pressure - EKG with first-degree AV block with bigeminy rate of 60s. In room on monitor rate 45-55 - No leukocytosis, hemoglobin 14.6. Sodium 139, potassium 4.4. Creatinine 1.68, baseline 1.41.6. BSG 106. Troponin was normal at 10. COVID was negative. Hold metoprolol Cardiology consulted for pacer eval Hemodynamically stable at bedside, atropine PRN ordered, no indication for emergent pacing or atropine at time of assessment. Admit to telemetry Optimize magnesium 2.0/magnesium 1.0 Troponin normal on assessment Patient clinically without chest pain TSH pending, Lyme pending History of CAD s/p ROD to left circumflex 2017 Continued on aspirin, lisinopril Hold metoprolol in the setting of bradycardia Initial troponin negative, 2-hour troponin pending Hypertension Continue lisinopril Metoprolol held due to bradycardia CKD 3 Baseline creatinine 1.41.6, admitting creatinine 1.68 BMP tomorrow morning, resume lisinopril if within normal range Euvolemic on exam Hyperlipidemia Continue atorvastatin DVT prophylaxis: Heparin due to CKD with upper normal creatinine Disposition: PCU for symptomatic bradycardia CODE STATUS: Full code Diet: Heart healthy diet, n.p.o. at midnight pending cardiology eval (2) Presence of drug-eluting stent in left circumflex coronary artery: (3) Hyperlipidemia: (4) Antiplatelet or antithrombotic long-term use: (5) Benign hypertension with CKD (chronic kidney disease) stage III: (6) CAD (coronary artery disease): History of Present Illness Primary Care Provider: BAYRON Pineda Kaden is an 82-year-old male with past medical history of CKD, CAD, hyperlipidemia who presents for dizziness and weakness with ambulation for the last 2 to 3 weeks. On initial assessment patient was reportedly with bigeminy with nonconducted second beat resulting in bradycardia of the 30s with lightheadedness. Patient on repeat EKG with first-degree AV block with bigeminy rate of 60s. QTc 466. MT 234. EKG 02/2019 sinus rhythm with PACs, MT 180, rate 87. Patient was seen by cardiology 09/12/2021 for follow-up of coronary artery disease. At the time he was having normal exercise tolerance without angina or syncopal symptoms. Kaden reports that he felt normal this year while hunting, until about 2 weeks ago. He noticed significant exercise intolerance with very easy fatigue and almost no energy. He had a couple of episodes of lightheadedness. He reports that just today he had a feeling of flushing/pressure in his neck/upper chest, but denies chest pressure/chest pain. He checked his blood pressure which was normal, but his heart rate was reading as an error on his monitor, and when he was able to finally check it his pulse was in the 30s. At time of hospitalist assessment his rate is ranging from 4550, and he reports he is having no symptoms including no shortness of breath, chest pain, chest pressure, flushing, lightheadedness, dizziness. He reports he has been on 1/2 tablet of metoprolol in the last year which he has not missed any doses of, has not taken extra doses of. 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 06/2019 Mobile Tele: isolated nonsustained episodes of V. tach, 6.7% of recorded beats, VPD's, APD's, no complex atrial arrhythmia. No significant pauses were appreciated. First-degree AV block and second-degree AV block Mobitz 1 were seen. Junctional beats were seen. Maximum RR was 2.28 seconds. Medical History: Reviewed Medications: Reviewed Surgical History: Reviewed Allergies: Reviewed Social History: 12 drinks of carline versus whiskey daily, no alcohol during , Has not had any problems with withdrawal/tremors or DTs in the past Code Status: Full code Allergies Allergy/AdvReac Type Severity Reaction Status Date / Time clopidogrel Allergy Intermediate rash Verified 06/16/22 08:31 grass pollen Allergy Unknown Verified 06/16/22 08:31 weed pollen Allergy Unknown Verified 06/16/22 08:31 Trees Allergy Unknown Uncoded 06/16/22 08:31 Home Medications Medication Instructions Recorded Confirmed Type albuterol sulfate 90 mcg/actuation 1 puffs inhalation Q6H PRN sob 03/09/19 06/16/22 History aerosol inhaler (Ventolin HFA) aspirin 81 mg tablet,delayed 81 mg PO DAILY 03/09/19 06/16/22 History release (Adult Low Dose Aspirin) acetaminophen 500 mg capsule 1,000 mg PO .COMPLEX PRN 03/17/19 06/16/22 History cholecalciferol (vitamin D3) 25 1,000 units PO DAILY 03/17/19 06/16/22 History mcg (1,000 unit) capsule loratadine 10 mg tablet 10 mg PO DAILY PRN 03/17/19 06/16/22 History melatonin 5 mg capsule mg PO PRN 04/15/19 06/16/22 History simethicone 80 mg chewable tablet 40 mg PO .COMPLEX 09/13/19 06/16/22 History lisinopril 10 mg tablet 10 mg PO DAILY #90 tabs 09/12/21 08/30/22 Rx metoprolol succinate 25 mg 12.5 mg PO DAILY #45 tabs 09/12/21 08/30/22 Rx tablet,extended release 24 hr atorvastatin 40 mg tablet 40 mg PO QAM #90 tabs 11/21/21 08/30/22 Rx tamsulosin 0.4 mg capsule 0.4 mg PO DAILY #90 caps 11/27/21 08/30/22 Rx vit B complex 100 combo no.2 100 tab PO 11/27/21 06/16/22 History mg tablet,extended release (B-100 Complex ER) fluticasone propionate 50 1 spray intranasal DAILY PRN 12/13/21 06/16/22 Rx mcg/actuation nasal allergy symptoms #16 grams spray,suspension (Flonase Allergy Relief) allopurinol 100 mg tablet 100 mg PO DAILY #90 tabs 03/17/22 06/16/22 Rx omeprazole 20 mg tablet,delayed 20 mg PO DAILY PRN 06/16/22 06/16/22 History release Past Med/Surg History Medical History Acid reflux disease Acute bronchitis with bronchospasm Allergic rhinitis Atrioventricular block Benign prostatic hyperplasia with elevated prostate specific antigen (PSA) Benign prostatic hyperplasia with urinary obstruction Bloated abdomen Bronchospasm CAD S/P percutaneous coronary angioplasty Chest tightness Chronic gout Colonic fistula COPD, mild Cough Diverticulosis of colon Elevated blood sugar level Elevated parathyroid hormone Encounter for long-term (current) use of medications Hearing loss HTN (hypertension) Hypercholesterolemia Impotence, organic Lower resp. tract infection Medication monitoring encounter Nodular prostate with urinary obstruction PAC (premature atrial contraction) Premature atrial complex Screening for colon cancer Small intestinal bacterial overgrowth Stage III chronic kidney disease Symptomatic bradycardia Surgical History H/O inguinal hernia repair H/O percutaneous transluminal coronary angioplasty History of colon surgery Stented coronary artery Family History Mother Colorectal cancer Denies family history of Ovarian cancer Prostate cancer Myocardial infarction Breast cancer Social History Smoking Status: Never smoker Tobacco Type: Pipe and Cigars Age Started Using Tobacco: 28; Age Quit Using Tobacco: 48; Second Hand Exposure: No; Hx Alcohol Use: Yes Hx Substance Use: No Preferred Language: Nepali Communication Ability: Effective Hearing Ability: Use of Hearing Aid 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 NAD. Cooperative. HEENT: Atraumatic, normocephalic. Vision/hearing intact Pulm: CTAB A&P. -wheezes, -rales, -rhonchi. Symmetrical chest rise. No increased work of breathing. No respiratory distress. Cardiac: Irregular, bradycardic. Radial pulses intact and symmetrical. No JVD Abdominal: Nontender, nondistended, soft. BS present. Extremities: Warm, dry. Moves all extremities equally. 5/5 swatch paster strength, ankle dorsiflexion/plantarflexion, hip flexion. Sensation intact to soft touch in upper and lower extremities bilaterally. Results & Data Results & Data ([facility]) Vital Signs (Past 12 Hours) Vital Signs Temp Pulse Pulse Resp BP BP Pulse Ox 08/30/22 16:15 51 L 14 98 08/30/22 16:01 155/85 H 08/30/22 16:01 54 L 18 99 08/30/22 16:00 21 97 08/30/22 15:45 51 L 20 98 08/30/22 15:30 52 L 16 97 08/30/22 15:30 147/76 H 08/30/22 15:15 53 L 23 98 08/30/22 15:00 54 L 20 98 08/30/22 15:00 165/76 H 08/30/22 14:58 190/75 H 08/30/22 14:58 58 L 18 96 08/30/22 14:50 69 27 H 182/67 H 97 08/30/22 14:50 08/30/22 14:49 97 08/30/22 14:29 36.0 C L 51 L 20 163/81 H 96 O2 Del Method 08/30/22 16:15 Room Air 08/30/22 16:01 08/30/22 16:01 Room Air 08/30/22 16:00 Room Air 08/30/22 15:45 Room Air 08/30/22 15:30 Room Air 08/30/22 15:30 08/30/22 15:15 08/30/22 15:00 08/30/22 15:00 08/30/22 14:58 08/30/22 14:58 08/30/22 14:50 Room Air 08/30/22 14:50 Room Air 08/30/22 14:49 Room Air 08/30/22 14:29 Room Air PG Care Time/CCT Total # of Minutes Spent Total Time Spent with Patient: Total time spent is greater than 50% in coordination of care (as documented) at patient's floor/unit and/or counseling patient: Coding Level of Care Code 19026 INT INP/OBS CARE 2/55MIN Diagnoses Symptomatic bradycardia R00.1 Presence of drug-eluting stent in left circumflex coronary artery Z95.5 Hyperlipidemia E78.5 Antiplatelet or antithrombotic long-term use Z79.02 Benign hypertension with CKD (chronic kidney disease) stage III I12.9; N18.3 CAD (coronary artery disease) I25.10
[2022-08-30] MEDS ORDERED: ATROPINE SULFATE 0.1 MG/ML 10ML SYR IV PRN (19:54)
[2022-08-30] MEDS ORDERED: ALBUTEROL HFA 8 GM INHALER INH PRN (19:54)
[2022-08-30] MEDS ORDERED: POLYETHYLENE (MIRALAX) 17 GM PACK PO PRN (19:54)
[2022-08-30 21:16] LABS: Lyme Ab IgG w/WB Rflx Negative (Negative); Lyme Ab IgM w/WB Rflx Negative (Negative)
[2022-08-30] MEDS: HEPARIN SOD 5,000 UNIT/0.5 ML VIAL SQ SCH (23:13)
[2022-08-31 06:17] LABS: Basophils # (auto) 0.11 K/uL (0-0.2); Eosinophils # (auto) 0.45 K/uL (0-0.50); Eosinophils % (auto) 8.2 %; Hematocrit (blood only) 39.4 % (40.1-51.0); Hemoglobin 13.3 g/dl (14.0-18.0); Immature Granulocytes # (auto) 0.01 K/uL (0.00-0.02); Immature Granulocytes % (auto) 0.2 %; Lymphocytes # (auto) 1.54 K/uL (1.2-3.4); Lymphocytes % (auto) 27.9 %; Mean Corpuscular Hemoglobin 31.1 pg (25.0-34.0); Mean Corpuscular Hgb Conc 33.8 g/dL (32.0-36.0); Mean Corpuscular Volume 92.1 fL (80.0-100.0); Mean Platelet Volume 10.5 fL (9.4-12.4); Monocytes # (auto) 0.58 K/uL (0.24-0.82); Monocytes % (auto) 10.5 %; Neutrophils # (auto) 2.83 K/uL (1.4-6.5); Neutrophils % (auto) 51.2 %; Platelet Count 244 K/uL (130-400); RDW Coefficient of Variation 12.4 % (11.5-14.5); RDW Standard Deviation 41.9 fL (36.4-46.3); Red Blood Count 4.28 M/uL (4.63-6.08); White Blood Count 5.52 K/ul (4.8-10.8)
[2022-08-31] MEDS: HEPARIN SOD 5,000 UNIT/0.5 ML VIAL SQ SCH ×2 (06:23→14:34)
[2022-08-31 06:34] LABS: BUN Creatinine Ratio 17.1 (10-20); Calcium 7.9 mg/dl (8.5-10.1); Creatinine Clr Calc Pharmacy 35.4 ml/min; Est GFR (African American) 53.1 ml/min; Est GFR (Non-African American) 45.8 ml/min; Potassium 3.8 mmol/L (3.5-5.1)
--- NOTE | 2022-08-31 07:51 | Hospitalist Progress Note ---
Date of Service August 31, 2022 Assessment & Plan (1) Symptomatic bradycardia: (2) Presence of drug-eluting stent in left circumflex coronary artery: (3) Hyperlipidemia: (4) Antiplatelet or antithrombotic long-term use: (5) Benign hypertension with CKD (chronic kidney disease) stage III: (6) CAD (coronary artery disease): Rosie Alfonso is an 82 yo M w/ history of reflux, CAD s/p ROD to LCx (2017), gout, COPD, diverticulosis, hearing loss, HTN, hypercholesterolemia, SIBO, and CKDIII who was seen in the ED 08/30/22 for exercise intolerance and fatigue w/ associated lightheadedness that had been occurring for 2-3 weeks. Patient was found to be experiencing symptomatic bradycardia w/o chest pain or dyspnea and was admitted for evaluation and management. Symptomatic Bradycardia - 2 weeks of exercise intolerance, fatigue, intermittent lightheadedness. 1 episode of neck tightness (resolved) w/o CP or dyspnea - EKG 08/30: 1st Degree AV Block, rate 64, regular sinus w/ PVCs in bigeminy. ED monitor rate 45-55. - Labs 08/30: No leukocytosis, Hgb 14.6, Na 139, K 4.4, Cr 1.68 H, baseline 1.41.6, BSG 106, Troponin negative 1446, COVID was negative. Hemodynamically stable at bedside, Atropine PRN ordered Admit to telemetry Optimize magnesium to 2.0 TSH pending, Lyme pending --- Continue Metoprolol Hold --- Cardiology consulted, appreciate recommendations CAD s/p ROD to LCx in 2018 Continued on home aspirin and lisinopril Hold metoprolol in the setting of bradycardia Initial troponin negative --- Repeat Trop Hypertension Continue lisinopril Metoprolol held due to bradycardia CKD 3 Baseline creatinine 1.41.6, admitting creatinine 1.68 BMP tomorrow morning, resume lisinopril if within normal range Euvolemic on exam --- Cr 1.4/GFR 45, ok to resume Lisinopril Hyperlipidemia Continue atorvastatin DVT prophylaxis: Heparin due to CKD with upper normal creatinine Disposition: PCU for symptomatic bradycardia CODE STATUS: Full code Diet: Heart healthy diet, n.p.o. at midnight pending cardiology eval Admission and Anticipated Discharge Date Admission Date: August 30, 2022 Luna Alfonso is an 82 yo M w/ history of reflux, CAD s/p ROD to LCx (2018), gout, COPD, diverticulosis, hearing loss, HTN, hypercholesterolemia, SIBO, and CKDIII who was seen in the ED 08/30/22 for exercise intolerance and fatigue w/ associated lightheadedness that had been occurring for 2-3 weeks. Patient was found to be experiencing symptomatic bradycardia w/o chest pain or dyspnea and was admitted for evaluation and management. Review of Systems Review of Systems: As per HPI Physical Exam Physical Exam: Gen: NAD, alert, interactive. AO x 3 HEENT: Supple, no LAD, no thyromegaly, no JVD Resp:Non-labored, no wheezing/rhonchi/rales, CTAB CV:[irregular/bradycardic], normal S1/S2, no M/R/G Abd: Soft, non-distended, no TTP, normoactive bowels, no masses Extr: 2+ dp bilaterally, no edema Skin: No rashes lesions or erythema Results & Data Results & Data ([facility]) Vital Signs (Past 12 Hours) Vital Signs Temp Pulse Pulse Resp BP BP Pulse Ox 08/31/22 02:55 36.6 C 57 L 18 159/77 H 92 08/31/22 00:55 08/31/22 00:50 51 L 08/31/22 00:47 36.4 C L 48 L 14 182/76 H 97 08/31/22 00:34 08/30/22 20:30 55 L 16 95 08/30/22 20:30 149/75 H 08/30/22 20:15 57 L 18 97 08/30/22 20:00 57 L 18 97 08/30/22 20:00 192/91 H 08/30/22 19:45 70 22 98 O2 Del Method O2 Del Method 08/31/22 02:55 Room Air 08/31/22 00:55 Room Air 08/31/22 00:50 08/31/22 00:47 Room Air 08/31/22 00:34 Room Air 08/30/22 20:30 08/30/22 20:30 08/30/22 20:15 08/30/22 20:00 08/30/22 20:00 08/30/22 19:45 Laboratory Results Abnormal lab results 08/30/22 08/31/22 08/31/22 Range/Units 14:46 05:33 05:33 RBC 4.28 L (4.63-6.08) M/uL Hgb 13.3 L (14.0-18.0) g/dl Hct 39.4 L (40.1-51.0) % BUN 28 H 24 H (6-23) mg/dl Creatinine 1.68 H (0.6-1.4) mg/dl Glucose 106 H (70-99(Fasting)) mg/dl Calcium 8.3 L 7.9 L (8.5-10.1) mg/dl Diagnostic Findings Chest X-Ray 08/30/22 14:43 XR chest 1V portable HISTORY: 82 years-old Male Chest pain, nonspecific acute chest pain COMPARISON: Chest radiograph 12/19/2016 TECHNIQUE: AP view of the chest FINDINGS: Cardiac mediastinal and hilar silhouettes are within normal limits. Atherosclerosis of the aorta. No pneumothorax, pleural effusion, airspace consolidation or overt pulmonary edema. Degenerative changes of the shoulders and spine. IMPRESSION: No acute process. ECG Additional Comments: EKG 08/30: 1st Degree AV Block, rate 64, regular sinus w/ PVCs in bigeminy Resident Activity Tracking Resident Involvement: Resident Care Provided Care Provided: Adult Hospital Medicine
[2022-08-31] MEDS ORDERED: lisinopril 10 MG TAB PO SCH (09:00)
[2022-08-31] MEDS ORDERED: ASPIRIN 81 MG ECTAB PO SCH (09:00)
[2022-08-31] MEDS ORDERED: ATORVASTATIN 40 MG TAB PO SCH (09:00)
[2022-08-31] MEDS ORDERED: TAMSULOSIN HCL 0.4 MG CAP PO SCH (09:00)
[2022-08-31] MEDS ORDERED: PANTOprazole 40 MG TAB PO SCH (09:00)
--- NOTE | 2022-08-31 14:12 | Discharge Summary ---
Date of Service August 31, 2022 Admission HPI Per Admitting Provider Kaden is an 82-year-old male with past medical history of CKD, CAD, hyperlipidemia who presents for dizziness and weakness with ambulation for the last 2 to 3 weeks. On initial assessment patient was reportedly with bigeminy with nonconducted second beat resulting in bradycardia of the 30s with lightheadedness. Patient on repeat EKG with first-degree AV block with bigeminy rate of 60s. QTc 466. NV 234. EKG 02/2019 sinus rhythm with PACs, NV 180, rate 87. Patient was seen by cardiology 09/12/2021 for follow-up of coronary artery disease. At the time he was having normal exercise tolerance without angina or syncopal symptoms. Kaden reports that he felt normal this year while hunting, until about 2 weeks ago. He noticed significant exercise intolerance with very easy fatigue and almost no energy. He had a couple of episodes of lightheadedness. He reports that just today he had a feeling of flushing/pressure in his neck/upper chest, but denies chest pressure/chest pain. He checked his blood pressure which was normal, but his heart rate was reading as an error on his monitor, and when he was able to finally check it his pulse was in the 30s. At time of hospitalist assessment his rate is ranging from 4550, and he reports he is having no symptoms including no shortness of breath, chest pain, chest pressure, flushing, lightheadedness, dizziness. He reports he has been on 1/2 tablet of metoprolol in the last year which he has not missed any doses of, has not taken extra doses of. 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 06/2019 Mobile Tele: isolated nonsustained episodes of V. tach, 6.7% of recorded beats, VPD's, APD's, no complex atrial arrhythmia. No significant pauses were appreciated. First-degree AV block and second-degree AV block Mobitz 1 were seen. Junctional beats were seen. Maximum RR was 2.28 seconds. Medical History: Reviewed Medications: Reviewed Surgical History: Reviewed Allergies: Reviewed Social History: 12 drinks of carline versus whiskey daily, no alcohol during , Has not had any problems with withdrawal/tremors or DTs in the past Code Status: Full code Admission Exam Per Admitting Provider General: A&Ox3. NAD. Cooperative. HEENT: Atraumatic, normocephalic. Vision/hearing intact Pulm: CTAB A&P. -wheezes, -rales, -rhonchi. Symmetrical chest rise. No increased work of breathing. No respiratory distress. Cardiac: Irregular, bradycardic. Radial pulses intact and symmetrical. No JVD Abdominal: Nontender, nondistended, soft. BS present. Extremities: Warm, dry. Moves all extremities equally. 5/5 instrumentation and controls designer strength, ankle dorsiflexion/plantarflexion, hip flexion. Sensation intact to soft touch in upper and lower extremities bilaterally. Principal Diagnosis Symptomatic Bradycardia Discharge Exam Gen: NAD, alert, interactive HEENT: Supple, no LAD, no thyromegaly, no JVD Resp:Non-labored, no wheezing/rhonchi/rales, CTAB CV:bradycardic rate, regular rhythm, normal S1/S2, no M/R/G Abd: Soft, non-distended, no TTP, normoactive bowels, no masses Extr: 2+ dp bilaterally, no edema Skin: No rashes lesions or erythema Discharge Data Allergies Allergy/AdvReac Type Severity Reaction Status Date / Time clopidogrel Allergy Intermediate rash Verified 08/30/22 17:39 grass pollen Allergy Unknown Congested Verified 08/30/22 17:39 weed pollen Allergy Unknown Congested Verified 08/30/22 17:39 Trees Allergy Unknown Congested Uncoded 08/30/22 17:39 Consultations 08/30/22 15:48 ED Decision to Admit Stat 08/31/22 09:00 Consult Cardiology Routine Procedures Performed Chest X-Ray 08/30/22 14:43 XR chest 1V portable HISTORY: 82 years-old Male Chest pain, nonspecific acute chest pain COMPARISON: Chest radiograph 12/19/2016 TECHNIQUE: AP view of the chest FINDINGS: Cardiac mediastinal and hilar silhouettes are within normal limits. Atherosclerosis of the aorta. No pneumothorax, pleural effusion, airspace consolidation or overt pulmonary edema. Degenerative changes of the shoulders and spine. IMPRESSION: No acute process. ACT 112: Negative or not required by law. The above report was generated using voice recognition software. It may contain grammatical, syntax or spelling errors. Electronically signed by: Joe Limon M.D. 08/30/2022 3:14 PM Ordered Studies Abnormal lab results 08/30/22 08/31/22 08/31/22 Range/Units 14:46 05:33 05:33 RBC 4.28 L (4.63-6.08) M/uL Hgb 13.3 L (14.0-18.0) g/dl Hct 39.4 L (40.1-51.0) % BUN 28 H 24 H (6-23) mg/dl Creatinine 1.68 H (0.6-1.4) mg/dl Glucose 106 H (70-99(Fasting)) mg/dl Calcium 8.3 L 7.9 L (8.5-10.1) mg/dl Hospital Course (1) Symptomatic bradycardia: (2) Presence of drug-eluting stent in left circumflex coronary artery: (3) Hyperlipidemia: (4) Antiplatelet or antithrombotic long-term use: (5) Benign hypertension with CKD (chronic kidney disease) stage III: (6) CAD (coronary artery disease): Rosie Alfonso is an 82 yo M w/ history of reflux, CAD s/p ROD to LCx (2017), gout, COPD, diverticulosis, hearing loss, HTN, hypercholesterolemia, SIBO, and CKDIII who was seen in the ED 08/30/22 for exercise intolerance and fatigue w/ associated lightheadedness that had been occurring for 2-3 weeks. Patient was found to be experiencing symptomatic bradycardia w/o chest pain or dyspnea and was admitted for evaluation and management. Symptomatic Bradycardia - 2 weeks of exercise intolerance, fatigue, intermittent lightheadedness. 1 episode of neck tightness (resolved) w/o CP or dyspnea -EKG 08/30: 1st Degree AV Block, rate 64, regular sinus w/ PVCs in bigeminy. ED monitor rate 45-55. -Labs 08/30: No leukocytosis, Hgb 14.6, Na 139, K 4.4, Cr 1.68 H, baseline 1.41.6, BSG 106, Troponin negative 1446, COVID was negative. Hemodynamically stable at bedside, Atropine PRN ordered Admit to telemetry Optimize magnesium to 2.0 TSH wnl, Lyme neg --- Discontinue Metoprolol 12.5 mg PO daily, likely medication effect, patient 50s at baseline w/o symptoms --- Patient to follow with Cardiology (Dr. Raygoza) in 2 weeks (appointment scheduled) --- Cardiology consulted, advising to d/c beta jacques, Echo, compression stockings, hydration, and follow up with Dr. Raygoza outpatient for security monitor, stable to discharge to home CAD s/p ROD to LCx in 2018 Continued on home aspirin and lisinopril Hold metoprolol in the setting of bradycardia Initial troponin negative Hypertension Continue home lisinopril Metoprolol held due to bradycardia --- Elevated inpatient, continue to monitor outpatient CKD 3 Baseline creatinine 1.41.6, admitting creatinine 1.68 BMP tomorrow morning, resume lisinopril if within normal range Euvolemic on exam --- Cr 1.4/GFR 45, ok to resume Lisinopril Hyperlipidemia Continue atorvastatin DVT prophylaxis: Heparin inpt Disposition: Home CODE STATUS: Full code Diet: Heart healthy diet Total Time Total Time Spent Total Time Spent (In Minutes): See attending attestation Discharge Plan Discharge Items Patient Disposition: Home - Self-Care Reason For Visit: SYMPTOMATIC BRADYCARDIA Discharge Diagnosis: Symptomatic Bradycardia Condition on Discharge: Good Activity: Per Instructions section Non-emergency contact: Primary Care Provider and Data Steward Call non-emergency contact if: you have any medication questions and your symptoms worsen Follow-up/Referrals: Hope Neal CRNP [Primary Care Provider] - Diet: Heart Healthy Addtl Attending Provider Instructions: You were admitted to the hospital for symptomatic bradycardia (slow heart rate). Symptomatic Bradycardia (slow heart rate): As discussed while you were in the hospital, your heart rate normally runs in the 50s and you have no symptoms, but recently you have been experiencing episodes of slow heart rate, which become symptomatic with weakness and lightheadedness during exertion. We believe that this is associated with one of the medications that you are on, Metoprolol, which will slow the heart rate, so we stopped the medication while you were here in the hospital and moving forward would like for you to discontinue this medication. We had our Data Steward (Dr. Cotto) come evaluate you as well, he agreed and recommended stopping the Metoprolol. In addition, he suggests that moving forward you increase hydration (drinking 64 ounces of water each day) and wearing compression stockings. We are going to perform an Echocardiogram while you are here, but you can follow up with Dr. Raygoza regarding this as an outpatient, if there is anything concerning, we will call you with the results. We recommend that at your upcoming appointment with Dr. Raygoza that he places a security monitor which will monitor your heart rhythms for longer periods of time, and if these symptoms recur while you are wearing the monitor, we will be able to capture what is going on with your heart rate in the exact moment of occurrence. At this time, there is no indication for pacing your heart rate with a pace maker. Please continue to follow closely with your Data Steward Dr. Raygoza as he will continue to adjust your outpatient medications in the future. A discharge summary will be sent to your primary care physician to ensure continuity of care. Please bring this discharge summary with you to your next office appointment so that your provider can review it at that time. Follow-up appointments: - Make a follow-up appointment with your PCP within the next week. It is very important that you follow up with them shortly after discharge from the hospital. We have requested a follow-up appointment with your primary care physician within one week of discharge. Please call their office if you do not hear from them. - Please be sure to keep your upcoming appointment with Dr. Raygoza. Dr. Cotto will reach out to him about scheduling the outpatient heart monitor. Medications: - Your medication list has been reviewed and reconciled upon discharge to ensure accuracy and continuity of care. An updated list of all your medications is included with your hospital discharge paperwork. Please review this list closely, and make note of any changes. - Metoprolol 12.5 mg PO daily was DISCONTINUED. Contact your Primary Care Provider if you experience: - Return of symptoms (weakness/lightheadedness) - Difficulty following your treatment plan or taking medications Call 911 or go to the emergency department if you experience: - Sudden, severe abdominal pain or nausea/vomiting - Severe chest pain, or chest pain that radiates (moves) to your jaw or arm - Sudden, severe shortness of breath or difficulty breathing It was a pleasure to be a part of your care, Dr. Kennedi Mena Pending Studies at Discharge: No Stand-Alone Forms: My [facility] [employer], Smoking Cessation Medications and DC Order Prescriptions: Continued atorvastatin 40 mg tablet 40 mg PO QAM Qty: 90 3RF albuterol sulfate [Ventolin HFA] 90 mcg/actuation HFA aerosol inhaler 1 puffs INH Q6H PRN (Reason: sob) aspirin [Adult Low Dose Aspirin] 81 mg tablet,delayed release (DR/EC) 81 mg PO QAM loratadine 10 mg tablet 10 mg PO DAILY PRN (Reason: Allergy Symptoms) cholecalciferol (vitamin D3) 1,000 unit capsule 1,000 units PO QAM acetaminophen 500 mg capsule 1,000 mg PO Q4 MDD 3g PRN (Reason: Fever Or Pain) Label Comments: 1,000 mg PO Q8H for 3 days, then 1 capsue Q4H PRN . Do Not Exceed 3000mg every 24 hours PRN; simethicone 80 mg tablet,chewable 80 mg PO Q6 PRN (Reason: bloating,gas) omeprazole 20 mg tablet,delayed release (DR/EC) 20 mg PO DAILY PRN (Reason: Acid Reflux) fluticasone propionate [Flonase Allergy Relief] 50 mcg/actuation spray,suspension 1 spray INTNAS DAILY PRN (Reason: allergy symptoms) Qty: 16 5RF B-100 Complex 100 mg tablet extended release 1 tab PO QAM tamsulosin 0.4 mg capsule 0.4 mg PO QPM lisinopril 10 mg tablet 10 mg PO QAM allopurinol 100 mg tablet 100 mg PO QAM Discontinued metoprolol succinate 25 mg tablet extended release 24 hr 12.5 mg PO DAILY Qty: 45 3RF Discharge Orders: Discharge Order (Routine); Ordered 08/31/22 Ordered By: Kennedi Mena Admission Data Admit Date/Time: 08/30/22 17:08 Attending Provider: Max Irving Admit Provider: Aiden Cueva Primary Care Provider: Hope Neal Other Providers: Aiden Cueva ; Gomez Cotto Other Interventions: Discharge Summary Assessment (RN) Last Done: 08/31/22 14:24 Supervising Physician Co-Signing Physician Notes I personally examined the patient and verified all ruano points of history and exam, discussed case, and agree with decision making with Dr Mena. Feeling better. Would like to go home. Case discussed with cardiology. Input greatly appreciated. Vitals noted, in general he is awake and alert pleasant no distress. HEENT normocephalic atraumatic mucous membranes moist. Breathing unlabored no accessory muscle use good effort. Skin shows no rashes no pallor or icterus. Neuro without focal deficits. Symptomatic bradycardiahopefully purely medication induced. Has improved. Safe/stable for home with cessation of beta-jacques. Outpatient rhythm monitoring. Continue to follow closely.
--- NOTE | 2022-08-31 15:07 | Cardiology Consultation ---
Date of Consultation August 31, 2022 Assessment & Plan (1) Symptomatic bradycardia: (2) Lightheadedness: (3) CAD (coronary artery disease): (4) Presence of drug-eluting stent in left circumflex coronary artery: (5) HTN (hypertension): (6) Frequent PVCs: Plan ASSESSMENT/PLAN: 1. Bradycardia: His heart rate at home in the 30s likely due to pulse deficit given frequent PVCs. Cannot rule out higher grade AV block, junctional rhythm, or other form of bradycardia. Recommend 30-day event monitor. Agree with discontinuation of beta-jacques for now. Recommended walking in the hallway and while doing so, heart rate increased into the 80s. Was monitoring for inappropriate chronotropic response with exercise. No indication for pacemaker based on today's findings. 2. Lightheadedness: May be due to some degree of chronotropic incompetence while on beta-jacques, but now off of beta-jacques, heart rate increased appropriately with mild exercise. Recommended compression stockings and remaining well-hydrated. Ordered echocardiogram. 3. Frequent PVCs: Echo ordered. Echo pending at the time of this note. Discontinuing beta-jacques as above. Perhaps frequent PVCs are playing a role in his symptoms. 30-day event monitor to further investigate. 4. CAD s/p Circumflex PCI: No angina. Chest pain completely different than prior angina. High-sensitivity troponin was not elevated. Continue aspirin 81 mg daily indefinitely. Continue high intensity statin therapy beta-jacques discontinued as above. Continue SHANON inhibitor. 5. Hypertension: Blood pressure has been well controlled at home but elevated here. Continue SHANON inhibitor and can titrate or initiate calcium channel jacques such as amlodipine to improve blood pressure. Cannot exclude orthostatic symptoms as part of his presentation, although symptoms tend to occur without changing position and therefore less likely. If not done, can check orthostatic vitals. 6. Disposition: Can be discharged today from a cardiology perspective, pending echo findings. Please call with any other questions or concerns. If he remains hospitalized, please call on-call pr specialist for questions or concerns tomorrow as I will be away from the hospital. Follow-up with his primary pr specialist, Dr. Raygoza as scheduled in the next couple of weeks. Arranging 30- day event monitor as an outpatient. Patient care discussed with Dr. Mitchell via telephone. Thank you for allowing me to participate in the care of your patient. Please call for any other questions or concerns. Sincerely, Christiano Cotto M.D. History of Present Illness Reason for Consultation: bradycardia Requesting Physician: Aiden Cueva Attending Physician: Max Irving DO History of Present Illness Mr. Mccullough is a very pleasant 82-year-old gentleman with a history significant for CAD s/p circumflex PCI, NSTEMI, hypertension, dyslipidemia, PACs, CKD, and COPD. His primary pr specialist is Dr. Raygoza. He was hospitalized on 08/30/2022 for "symptomatic bradycardia." For the past 1 month he has noted lightheadedness with mild exertion. He has been monitoring his blood pressure and it has mostly been 120/60 on average with heart rate in the 50s to low 60s. While using pulse oximeter, he has noted on occasion heart rate in the 30s. After eating lunch yesterday, he did not feel well. He took his blood pressure and it was 140/70 and his blood pressure cuff indicated air for his pulse. He waited and took it again, all while sitting, and once again had air x4 for his heart rate. He then took a manual pulse with his radial artery and counted 30s bpm. In general for the past month he has had more fatigue as well. He also noted tightness in his upper chest while sitting yesterday, but this was completely different than prior angina. He has noted exertional lightheadedness or also lightheadedness if standing, bending over and then standing upright again. He has not noted any significant lightheadedness simply by standing up from a seated position. He recently went hunting and had no symptoms. He admits that he has a history of "skipped beats" and stopped consuming caffeine approximately 15 years ago because of it. He felt well during our visit this morning. He had not had any more lightheadedness sitting in his bed. He denies orthopnea, shortness of breath, syncope, edema, or bleeding. Review of systems: As above. Review of systems otherwise negative/unremarkable. Family history: No known premature CAD. Social history: Quit smoking at the age of 48. 2 alcoholic beverages daily. No drugs. Lives at home with his , Maggy. 4 children, multiple grandchildren and great-grandchildren. His was present at the bedside. Allergies Allergy/AdvReac Type Severity Reaction Status Date / Time clopidogrel Allergy Intermediate rash Verified 08/30/22 17:39 grass pollen Allergy Unknown Congested Verified 08/30/22 17:39 weed pollen Allergy Unknown Congested Verified 08/30/22 17:39 Trees Allergy Unknown Congested Uncoded 08/30/22 17:39 Home Medications Medication Instructions Recorded Confirmed Type albuterol sulfate 90 mcg/actuation 1 puffs inhalation Q6H PRN sob 03/09/19 08/30/22 History aerosol inhaler (Ventolin HFA) aspirin 81 mg tablet,delayed 81 mg PO QAM 03/09/19 08/30/22 History release (Adult Low Dose Aspirin) acetaminophen 500 mg capsule 1,000 mg PO Q4 PRN Fever Or Pain 03/17/19 08/30/22 History cholecalciferol (vitamin D3) 25 1,000 units PO QAM 03/17/19 08/30/22 History mcg (1,000 unit) capsule loratadine 10 mg tablet 10 mg PO DAILY PRN Allergy Symptoms 03/17/19 08/30/22 History simethicone 80 mg chewable tablet 80 mg PO Q6 PRN bloating,gas 09/13/19 08/30/22 History atorvastatin 40 mg tablet 40 mg PO QAM #90 tabs 11/21/21 08/30/22 Rx vit B complex 100 combo no.2 100 1 tab PO QAM 11/27/21 08/30/22 History mg tablet,extended release (B-100 Complex ER) fluticasone propionate 50 1 spray intranasal DAILY PRN 12/13/21 08/30/22 Rx mcg/actuation nasal allergy symptoms #16 grams spray,suspension (Flonase Allergy Relief) omeprazole 20 mg tablet,delayed 20 mg PO DAILY PRN Acid Reflux 06/16/22 08/30/22 History release allopurinol 100 mg tablet 100 mg PO QAM 08/30/22 08/30/22 History lisinopril 10 mg tablet 10 mg PO QAM 08/30/22 08/30/22 History tamsulosin 0.4 mg capsule 0.4 mg PO QPM 08/30/22 08/30/22 History Patient History Medical History (Updated 08/31/22 @ 15:19 by Gomez Cotto MD) Acid reflux disease Acute bronchitis with bronchospasm Allergic rhinitis Atrioventricular block Benign prostatic hyperplasia with elevated prostate specific antigen (PSA) Benign prostatic hyperplasia with urinary obstruction Bloated abdomen Bronchospasm CAD S/P percutaneous coronary angioplasty Chest tightness Chronic gout 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 tract infection Medication monitoring encounter Nodular prostate with urinary obstruction PAC (premature atrial contraction) Premature atrial complex Screening for colon cancer Small intestinal bacterial overgrowth Stage III chronic kidney disease Symptomatic bradycardia Surgical History H/O inguinal hernia repair H/O percutaneous transluminal coronary angioplasty 2.25 X 12 mm Xience ROD mid L Cx 11/28/2015. History of colon surgery Repair of colocutaneous fistula with laparoscopic repair. Performed September 01, 2019 at [facility]. No cardiac complications. Postoperative urinary retention requiring insertion of Parker catheter. Stented coronary artery Family History Mother Colorectal cancer Denies family history of Ovarian cancer Prostate cancer Myocardial infarction Breast cancer Social History Smoking Status: Former smoker Tobacco Type: Pipe and Cigars Age Started Using Tobacco: 28; Age Quit Using Tobacco: 48; Second Hand Exposure: No; Hx Alcohol Use: Yes Alcohol type: wine Hx Substance Use: No Preferred Language: Frisian Communication Ability: Effective Hearing Ability: Use of Hearing Aid Ski Lift Operator Required: No Beliefs That Will Affect Care: None marital status: Current Living Situation: Spouse current occupational status: retired How many Children do You have: 4 Other Information That Helps Us Care for You: No Feels Safe at Home: Yes Childhood Exposure to Second-Hand Smoke: No caffeine: No Dental Care, Regularly: Yes Physical Activity Frequency: Daily Seatbelt Use: always Sunscreen Use: No Assistive Devices: None Physical Exam Physical Exam: Gen.: No acute distress. Alert and oriented. HEENT: Anicteric sclera. Neck: No JVD. No bruits. Normal carotid upstrokes bilaterally. Cardiac: PMI was nondisplaced. No ventricular heave. Regular rate and rhythm. Normal S1-S2. 1/6 systolic murmur. No rub or gallops. Pulmonary: Clear to auscultation bilaterally without wheezes, rales, or rhonchi. Abdomen: Soft, nontender, nondistended, with normoactive bowel sounds. No bruits noted. Extremities: 2+ radial pulses bilaterally. 2+ posterior tibialis pulses bilaterally. No edema or cyanosis. Psychiatric: Affect appears appropriate. Results & Data ([facility]) Vital Signs (Past 12 Hours) Vital Signs Temp Pulse Pulse Resp BP Pulse Ox O2 Del Method 08/31/22 11:32 36.7 C 53 L 20 173/76 H 94 Room Air 08/31/22 07:55 36.4 C L 62 18 178/82 H 91 Room Air 08/31/22 02:55 36.6 C 57 L 18 159/77 H 92 Room Air 08/31/22 00:55 08/31/22 00:50 51 L 08/31/22 00:47 36.4 C L 48 L 14 182/76 H 97 Room Air 08/31/22 00:34 Room Air O2 Del Method 08/31/22 11:32 08/31/22 07:55 08/31/22 02:55 08/31/22 00:55 Room Air 08/31/22 00:50 08/31/22 00:47 08/31/22 00:34 Laboratory Results Laboratory Results - last 24 hr 08/30/22 08/30/22 08/30/22 14:46 14:46 14:46 WBC RBC Hgb Hct MCV MCH MCHC RDW Std Deviation RDW Coeff of Rudy Plt Count MPV Immature Gran % (Auto) Neut % (Auto) Lymph % (Auto) Davison % (Auto) Eos % (Auto) Baso % (Auto) Neut # (Auto) Lymph # (Auto) Davison # (Auto) Eos # (Auto) Baso # (Auto) Immature Gran # (Auto) Sodium 139 Potassium 4.4 Chloride 106 Carbon Dioxide 29 Anion Gap 4 BUN 28 H Creatinine 1.68 H Est Cr Clr Drug Dosing 27.4 Est GFR ( Amer) 42.6 Est GFR (Non-Af Amer) 36.7 BUN/Creatinine Ratio 16.7 Glucose 106 H Calcium 8.3 L Total Bilirubin 0.4 AST 33 ALT 37 Alkaline Phosphatase 76 Troponin I High Sens 10.0 Total Protein 6.7 Albumin 3.9 Globulin 2.8 Albumin/Globulin Ratio 1.4 Lipase 20 TSH 2.202 Lyme Disease IgG Ab Negative Lyme Disease IgM Ab Negative SARS-CoV-2, RNA, NAAT 08/30/22 08/31/22 08/31/22 14:48 05:33 05:33 WBC 5.52 RBC 4.28 L Hgb 13.3 L Hct 39.4 L MCV 92.1 MCH 31.1 MCHC 33.8 RDW Std Deviation 41.9 RDW Coeff of Rudy 12.4 Plt Count 244 MPV 10.5 Immature Gran % (Auto) 0.2 Neut % (Auto) 51.2 Lymph % (Auto) 27.9 Davison % (Auto) 10.5 Eos % (Auto) 8.2 Baso % (Auto) 2.0 Neut # (Auto) 2.83 Lymph # (Auto) 1.54 Davison # (Auto) 0.58 Eos # (Auto) 0.45 Baso # (Auto) 0.11 Immature Gran # (Auto) 0.01 Sodium 141 Potassium 3.8 Chloride 107 Carbon Dioxide 29 Anion Gap 5 BUN 24 H Creatinine 1.40 Est Cr Clr Drug Dosing 35.4 Est GFR ( Amer) 53.1 Est GFR (Non-Af Amer) 45.8 BUN/Creatinine Ratio 17.1 Glucose 97 Calcium 7.9 L Total Bilirubin AST ALT Alkaline Phosphatase Troponin I High Sens Total Protein Albumin Globulin Albumin/Globulin Ratio Lipase TSH Lyme Disease IgG Ab Lyme Disease IgM Ab SARS-CoV-2, RNA, NAAT NEGATIVE Diagnostic Findings Telemetry personally reviewed: Mostly sinus bradycardia in the 50s. Frequent PVCs, sometimes in a bigeminal fashion. Telemetry was also watched while he was asked to walk in the hallway and his heart rate increased to the 80s, with a short walk. ECG personally reviewed 08/30/2022 at 1437: Sinus rhythm with first-degree AV block and PVCs in a bigeminal pattern. 64 bpm. Outpatient cardiology visit from 09/12/2021 reviewed. Labs reviewed. Chest x-ray 08/30/2022 image personally reviewed: No infiltrate. No significant pleural effusion. Clear lungs. (No acute process per radiology.) Admitting history and physical from 08/30/2022 reviewed. Medications Administered Current Inpatient Medications Albuterol (Albuterol Hfa 8 Gm Inhaler) 1 puffs INH Q6H PRN PRN Reason: sob Stop: 09/29/22 19:53 Aspirin (Aspirin 81 Mg Ectab) 81 mg PO DAILY JODY Stop: 09/30/22 08:59 Last Admin: 08/31/22 08:33 Dose: 81 mg Atorvastatin Calcium (Atorvastatin 40 Mg Tab) 40 mg PO QAM JODY Stop: 09/30/22 08:59 Last Admin: 08/31/22 08:33 Dose: 40 mg Atropine Sulfate (Atropine Sulfate 0.1 Mg/Ml 10ml Syr) 0.5 mg IV Q3M PRN PRN Reason: Symptomatic Bradycardia Heparin Sodium (Porcine) (Heparin Sod 5,000 Unit/0.5 Ml Vial) 5,000 units SQ Q8 JODY Stop: 09/29/22 21:59 Last Admin: 08/31/22 14:34 Dose: Not Given Lisinopril (Lisinopril 10 Mg Tab) 10 mg PO DAILY JODY Stop: 09/30/22 08:59 Last Admin: 08/31/22 08:33 Dose: 10 mg Pantoprazole Sodium (Pantoprazole 40 Mg Tab) 40 mg PO DAILY JODY Stop: 09/30/22 08:59 Last Admin: 08/31/22 08:33 Dose: 40 mg Polyethylene Glycol (Polyethylene (Miralax) 17 Gm Pack) 17 gm PO DAILY PRN PRN Reason: Constipation Stop: 09/29/22 19:53 Tamsulosin HCl (Tamsulosin Hcl 0.4 Mg Cap) 0.4 mg PO DAILY [facility] Stop: 09/30/22 08:59 Last Admin: 08/31/22 08:33 Dose: 0.4 mg PG Care Time/CCT Total # of Minutes Spent Total Time Spent with Patient: Total time spent is greater than 50% in coordination of care (as documented) at patient's floor/unit and/or counseling patient: Coding Level of Care Code 92846 INT INP/OBS CARE 2/55MIN Diagnoses Symptomatic bradycardia R00.1 Lightheadedness R42 CAD (coronary artery disease) I25.10 Presence of drug-eluting stent in left circumflex coronary artery Z95.5 HTN (hypertension) I10 Frequent PVCs I49.3
--- NOTE | 2022-08-31 16:04 | XCELERA ---
[id number]
--- NOTE | 2022-08-31 16:37 | Billing Data ---
Date of Service August 31, 2022 Coding Level of Care Code HOSP INP/OBS DISCH 30 MIN/LESS
--- NOTE | 2022-09-01 06:02 | Electrocardiogram Report ---
Test Reason : Blood Pressure : / mmHG Vent. Rate : 064 BPM Atrial Rate : 064 BPM P-R Int : 234 ms QRS Dur : 104 ms QT Int : 452 ms P-R-T Axes : 053 016 022 degrees QTc Int : 466 ms Poor data quality, interpretation may be adversely affected Sinus rhythm with 1st degree A-V block with frequent Premature ventricular complexes in a pattern of bigeminy Otherwise normal ECG When compared with ECG of 14-MAR-2019 07:58, Premature ventricular complexes are now Present Premature atrial complexes are no longer Present WA interval has increased Confirmed by Gomez Cotto ([id number]) on 09/01/2022 6:01:43 AM Referred By: Confirmed By:Gomez Cotto
== END 2022-08-31 15:46 | disposition home or self-care (01) | DRG 309 ==
LOC: ED 14:22 → EDINP 17:08 → INTOOBSV 17:08 → SUATTDRO 17:08 → EDINP 08-31 00:23 → 2S 08-31 00:34
DX: K21.9 Gastro-esophageal reflux disease without esophagitis; E78.5 Hyperlipidemia, unspecified; N18.30 Chronic kidney disease, stage 3 unspecified; I12.9 Hypertensive chronic kidney disease with stage 1 through stage 4 chronic kidney disease, or unspecified chronic kidney disease; Z95.5 Presence of coronary angioplasty implant and graft; Z79.899 Other long term (current) drug therapy; Z87.891 Personal history of nicotine dependence; R00.1 Bradycardia, unspecified; Z79.82 Long term (current) use of aspirin; I25.10 Atherosclerotic heart disease of native coronary artery without angina pectoris; J44.9 Chronic obstructive pulmonary disease, unspecified; R42 Dizziness and giddiness

== ENCOUNTER 2022-10-21 11:47 | Observation (INO) ==
[2022-10-21] MEDS ORDERED: BACITRACIN OINT 0.9 GM PKT ONE (12:06)
[2022-10-21] MEDS ORDERED: BUPIVACAINE 0.25% 30 ML VIAL ONE (12:06)
[2022-10-21] MEDS ORDERED: WATER, STERILE FOR INJ 10 ML VIAL ONE (12:06)
[2022-10-21] MEDS ORDERED: VANCOMYCIN HCL 1000MG/20ML VIAL ONE (12:06)
--- NOTE | 2022-10-21 13:00 | History & Physical Bridge Note ---
Date of Service October 21, 2022 History & Physical Bridge Note I have examined the patient, reviewed the History & Physical and in the interval since the performance of the History & Physical I have noted the following changes of clinical significance: no changes noted. I reviewed the indications, procedure, risks and alternatives with the patient, and answered all questions. Patient understands and agrees to the procedure. Consent obtained. I also reviewed the risks and use of sedation, patient understands and consent obtained.
[2022-10-21] MEDS ORDERED: fentaNYL citrate 100 MCG/2 ML VIAL ONE (13:03)
[2022-10-21] MEDS ORDERED: ceFAZolin 330 MG/ML 1 GM VIAL ONE (13:03)
[2022-10-21] MEDS ORDERED: MIDAZOLAM HCL 5 MG/ML 1 ML VIAL ONE (13:03)
--- NOTE | 2022-10-21 13:03 | Pre Anesthesia Assessment ---
Date of Service October 21, 2022 Pre Sedation Assessment Vital Signs Pulse Resp Pulse Ox O2 Del Method 10/21/22 12:05 43 L 18 98 Room Air Cardiovascular RRR, no murmur, no edema Respiratory normal respiratory effort, lungs clear to auscultation Pre-Sedation Airway Assessment Smoking Status: Never smoker Hx Sleep Apnea: No Short, Thick Neck: No Thyromental Distance: > or= 3.5 Finger Breadths Oral Cavity: + WNL Mallampati Class: III ASA: ASA2 NPO Status Date of Last Intake of Fluids: 10/20/22 Time of Last Intake of Fluids: 22:00 Date of Last Intake of Solid Food: 10/20/22 Time of Last Intake of Solid Foods: 22:00 Procedure Planning Contraindications for Sedation: none Current Medications Reviewed: Yes Notes The planned sedation has been discussed with the patient. Informed Consent was obtained. I have identified the patient, determined the appropriateness of sedation and have assessed the patient immediately prior to the procedure. All medicine(s) and interventions are by my order.
--- NOTE | 2022-10-21 15:03 | Electrophysiology Report ---
Date of Service October 21, 2022 Electrophysiology Procedure Electrophysiology Procedure Report Preoperative diagnosis: Symptomatic second-degree AV block Postoperative diagnosis: Same Procedure: Dual-chamber left bundle branch pacemaker implantation Surgeon: Pineda Bull MD Estimated blood loss: 20 cc Complications: None Disposition: Half Backer recovery Procedure details: After obtaining informed consent for the procedure, the patient was brought to the laboratory and prepped and draped in the standard sterile manner. The left prepectoral region was anesthetized with 1% lidocaine local anesthetic and left axillary venipuncture was performed by percutaneous technique and a guidewire placed through the left subclavian vein into the superior vena cava. The area was further infiltrated with 1% lidocaine local anesthetic and a 5 cm incision was made parallel to the left clavicle and 2 cm below it and carried down to the anterior pectoralis fascia. A pacemaker pocket was formed by blunt dissection anterior to the pectoralis fascia and a vancomycin-soaked sponge was placed in the pocket. An 8.5 [place] Medtronic lead introducer was placed over the guidewire into the left subclavian vein, the dilator and guidewire were removed and a bipolar active fixation steroid tipped atrial lead was advanced through the introducer into the superior vena cava. A guidewire was placed through the introducer and the introducer was stripped from the lead and guidewire. A 7 [place] Medtronic lead introducer was placed over the guidewire into the left subclavian vein. A C315 His 02 septal sheath was advanced through the introducer over a guidewire and advanced into the right ventricular outflow tract. The guidewire and dilator were removed and the sheath was positioned in a mid septal location. A bipolar active fixation steroid tipped ventricular lead was advanced through the introducer and rotated to advance the screw into the septum. Septal penetration was confirmed visually. Pacing and sensing thresholds were evaluated in bipolar configuration and are noted on the data sheet. The septal sheath was stripped away from the lead. The introducer was removed from the lead. The atrial lead was positioned in the region of the atrial appendage and the screw extended fixing the lead in position. Pacing and sensing thresholds were evaluated in bipolar configuration and are recorded on the implant data sheet. Once the leads were in position they were attached to the anterior pectoralis fascia using 2 sutures of 2-0 silk around each lead collar. The vancomycin soaked sponge was removed from the pocket, hemostasis was obtained, the pacemaker was attached to the leads and placed in the pocket with the leads coiled beneath it. The incision was closed with a running double subcutaneous closure of 3-0 Vicryl absorbable suture, followed by running subcuticular skin closure of 4-0 Vicryl absorbable suture. Bacitracin ointment was placed on the incision and a dressing applied. [facility] Electrophysiology codes Indication for Procedure (1) Second degree type I atrioventricular block: Pacing Procedure 1: Pacin Insert/Replace Pacer A & V PG Moderate Sedation Codes Moderate Sedation Codes Procedure 1: Sedation/Anesthesia: 56366 Mod Sedation by the same physician;Init15 Min Child Age 5 & Up Procedure 2: Sedation/Anesthesia: 14668 Mod Sedation by the same physician; Ea [id number] Minutes
[2022-10-21] MEDS ORDERED: ACETAMINOPHEN W/CODEINE #3 1 TAB PO PRN (15:04)
[2022-10-21] MEDS ORDERED: ACETAMINOPHEN 325 MG TAB PO PRN (15:04)
[2022-10-21] MEDS ORDERED: ALBUTEROL HFA 8 GM INHALER INH PRN (15:06)
[2022-10-21] MEDS ORDERED: SIMETHICONE 80 MG CHEW PO PRN (15:06)
[2022-10-21] MEDS ORDERED: LORATADINE 10 MG TAB PO PRN (15:06)
[2022-10-21] MEDS ORDERED: METOPROLOL TARTRATE 50 MG TAB PO STA (15:07)
[2022-10-21] MEDS ORDERED: PANTOprazole 40 MG TAB PO PRN (15:10)
--- NOTE | 2022-10-21 15:42 | Post Anesthesia Assessment ---
Date of Service October 21, 2022 Post Sedation Assessment Vital Signs Pulse Resp BP Pulse Ox O2 Del Method 10/21/22 15:00 60 16 154/88 H 96 Room Air 10/21/22 14:50 60 16 171/82 H 96 Room Air 10/21/22 12:05 43 L 18 98 Room Air Recovery Score Activity: Moves 4 extremities Respiration: Deep Breath/Cough Circulation: +/-20% PreAnes Value Consciousness: Fully Awake Oxygen Saturation: > 92% On Room Air Post Anesthesia Score: 10 Discharge Sedation Level of Care: Fast Track Phase II Post Sedation Plan On clinical assessment, the patient appears to have tolerated the sedation w ithout complications. Patient is recovering as anticipated. Patient will continue to be monitored by nursing and may be discharged when sedation discharge criteria are met per below protocol. Upon Completions of procedure up to 15 minutes continue every 5 minute vital signs and the P.A.R. score; then discharge to a Phase I or Fast Track to Phase II per the following guidelines: * Discharge Patient to appropriate Phase II area if PAR is 8 or greater or return to pre- procedure baseline. The post - procedure orders will be as directed. * If PAR score is less than 8 or not return to pre-procedure baseline then patient will follow Phase I monitoring till PAR is reached for Phase II. The Phase I may be done in procedure room or may call to secure a Phase I area. * If naloxone or flumazenil are used for reversal, hold in Phase I for continued monitoring from when last reversal dose was given for a minimum of 60 minutes or longer pending the nurse and/or physician discretion of patient condition before discharge to Phase II. Please call the Sedation Physician to re-evaluate and complete post-note for discharge to Phase II area. Do NOT discharge from procedure sedation or Phase 1 until post- sedation evaluation note is complete by procedure /sedation MD Sedation Discharge Instructions to be given to the patient at discharge to home.
--- NOTE | 2022-10-21 16:36 | Electrocardiogram Report ---
Test Reason : Blood Pressure : / mmHG Vent. Rate : 060 BPM Atrial Rate : 060 BPM P-R Int : 138 ms QRS Dur : 134 ms QT Int : 492 ms P-R-T Axes : 000 138 018 degrees QTc Int : 492 ms AV dual-paced rhythm Abnormal ECG When compared with ECG of 09-OCT-2022 11:00, (unconfirmed) Electronic ventricular pacemaker has replaced Sinus rhythm Confirmed by Nitesh Walls ([id number]) on 10/21/2022 4:36:15 PM Referred By: Pineda Bull Confirmed By:Nitesh Walls
[2022-10-21] MEDS ORDERED: TAMSULOSIN HCL 0.4 MG CAP PO SCH (21:00)
[2022-10-22] MEDS ORDERED: CHOLECALCIFEROL 1,000 UNITS 25 MCG TAB PO SCH (09:00)
[2022-10-22] MEDS ORDERED: ATORVASTATIN 40 MG TAB PO SCH (09:00)
[2022-10-22] MEDS ORDERED: lisinopril 10 MG TAB PO SCH (09:00)
[2022-10-22] MEDS ORDERED: METOPROLOL SUCC 50MG EXT REL TAB PO SCH (09:00)
[2022-10-22] MEDS ORDERED: ASPIRIN 81 MG ECTAB PO SCH (09:00)
[2022-10-22] MEDS ORDERED: VITAMIN B COMPLEX TAB PO SCH (09:00)
--- NOTE | 2022-10-22 09:21 | XRay Report ---
XR chest 2V PA/lateral HISTORY: 82 years-old Male EXACT TIME ORDERED Evaluate for pneumothorax and l status post placement of a left subclavian pacer. COMPARISON: Chest radiograph 08/30/2022 TECHNIQUE: PA and lateral views of the chest FINDINGS: Status post placement of a with dual lead left subclavian pacer. No postprocedural pneumothorax ident ified. Cardiac mediastinal and hilar silhouettes are within normal limits. Atherosclerosis of the aor ta. No pleural effusion, airspace consolidation or overt pulmonary edema. Bones appear grossly intact . IMPRESSION: Status post placement of a dual lead left subclavian pacer. No postprocedural pneumothora x identified. ACT 112: Negative or not required by law. The above report was generated using voice recognition software. It may contain grammatical, syntax o r spelling errors. Electronically signed by: Joe Limon M.D. 10/22/2022 9:20 AM
--- NOTE | 2022-10-22 09:54 | Cardiology Progress Note ---
Date of Service October 22, 2022 Assessment & Plan (1) Status post placement of cardiac pacemaker: Plan 1. Postop day #1: He is doing well postop day #1, the site looks good, the chest x-ray looks good without pneumothorax and the pacer is working well. He is stable for discharge. Admission and Anticipated Discharge Date Admission Date: October 21, 2022 Subjective He is feeling well today, he has no chest discomfort, no shortness of breath and no significant incisional discomfort. Physical Exam Physical Exam: The pacemaker site is clean and dry. There is minimal ecchymosis and no swelling. Cardiac rhythm is regular with no rub Lungs are clear Results & Data ([facility]) Vital Signs (Past 12 Hours) Vital Signs Temp Pulse Pulse Resp BP Pulse Ox O2 Del Method 10/22/22 07:42 36.5 C 65 18 165/74 H 96 Room Air 10/22/22 02:50 36.5 C 60 16 157/94 H 95 Room Air 10/21/22 22:00 60 10/21/22 22:56 36.5 C 65 22 130/73 96 Room Air Diagnostic Findings Postop ECG: AV sequential pacing with an appropriate septal ventricular complex. Telemetry: Normal dual-chamber pacemaker function Chest x-ray: Good lead position, no pneumothorax Pacemaker evaluation: Excellent pacing and sensing characteristics PG Care Time/CCT Total # of Minutes Spent Total Time Spent with Patient: Total time spent is greater than 50% in coordination of care (as documented) at patient's floor/unit and/or counseling patient: Coding Level of Care Code 19518 Post Operative Follow-Up Diagnoses Status post placement of cardiac pacemaker Z95.0 CPT Codes Dual Lead Pacemaker System - 18617 ([id number])
--- NOTE | 2022-10-22 14:30 | Discharge Summary ---
Date of Service October 22, 2022 Admission HPI Per Admitting Provider This is an 82-year-old male with a history of hypertension, dyslipidemia, ventricular arrhythmias as well as coronary disease. He presented with a non-ST segment elevation myocardial infarction on November 27, 2015, catheterization demonstrated subtotal circumflex occlusion as well as disease in other vessels. Intervention circumflex was performed with stent deployment. He did have a slow heart rate at the time therefore beta-blockade has not been used. An echocardiogram done November 28, 2015 showed normal left ventricular systolic function with inferior hypokinesis, moderate aortic sclerosis without stenosis. He was subsequently seen for his bradycardia in June 2019 where he was having heart rates in the upper 40s but without associated symptoms. He had Mobitz 1 second-degree AV block identified by electrocardiography, at the time he was on metoprolol tartrate 12.5 mg twice a day, I believe his beta-blockade was decreased at that time and his heart rate increased to the 50s and 60s. 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 This is followed at [facility]. He has not demonstrated this abnormality however. He was then admitted to [facility] on August 30, 2022 with intermittent weakness and lightheadedness and a pulse noted to be in the 30s on occasion. And electrocardiogram August 30, 2022 showed sinus rhythm with ventricular bigeminy and first-degree AV block. He was on 12.5 mg of metoprolol succinate at this time which was discontinued. Echocardiography August 31, 2022 showed hyperdynamic left ventricular systolic function, moderate left ventricular hypertrophy with no significant valvular disease. A 30-day air sampling and monitoring was performed from September 04, 2022 through October 03, 2022. The final report is not available, I was able to review the preliminary report and the rhythm strips online. His heart rate was as low as 20 bpm, at night during sleep, and he had a pause of 3.1 seconds. He had 8% PVCs. His rhythm was sinus with first and second-degree AV block. There were periods of 2-1 AV block but he did not seem to have complete heart block. He did have multiple symptoms while wearing the monitor, these included symptoms of lightheadedness and other things. There were frequent episodes of ventricular bigeminy during which he did have symptoms consistent with a low effective heart rate. During his periods of AV block he was sleeping he did not have symptomatic episodes during the day. His stress echo was done on September 25, 2022. He was in ventricular bigeminy at rest, as well as first-degree AV block. With exercise there was frequent ventricular ectopy during and following exercise including ventricular bigeminy and trigeminy. There was 1 ventricular couplet identified during recovery. The study was negative for ischemia. He seems to have symptomatic second-degree AV block and bradycardia, he has several reasons to require beta-blockade which cannot be used currently. He is therefore being admitted for pacemaker implantation. Admission Exam Per Admitting Provider Constitutional: Alert, cooperative and in no distress. HEENT: Unremarkable Neck: No jugular venous distention, carotid pulses are normal and equal bilaterally without bruits. Pulmonary: Clear to auscultation bilaterally. Cardiac: Regular rhythm with no murmur, gallop or rub. Abdomen: Soft, nontender with normal bowel sounds. Extremities: No edema. Distal pulses intact. Neurologic: No focal findings. Gait is steady. Skin: No rash, ecchymoses or petechiae. Principal Diagnosis Symptomatic second-degree AV block Discharge Exam Constitutional: Alert, cooperative and in no distress. HEENT: Unremarkable Neck: No jugular venous distention, carotid pulses are normal and equal bilaterally without bruits. Pulmonary: Clear to auscultation bilaterally. Cardiac: Regular rhythm with no murmur, gallop or rub. Abdomen: Soft, nontender with normal bowel sounds. Extremities: No edema. Distal pulses intact. Neurologic: No focal findings. Gait is steady. Skin: The device site is healing well with minimal ecchymosis, no drainage or bleeding. Discharge Data Allergies Allergy/AdvReac Type Severity Reaction Status Date / Time clopidogrel Allergy Intermediate rash Verified 10/09/22 11:14 grass pollen Allergy Unknown Congested Verified 10/09/22 11:14 weed pollen Allergy Unknown Congested Verified 10/09/22 11:14 Procedures Performed Operation Date: 10/21/22 13:00 Actual Procedures p Pacer with A/V Leads (Dual) - Pineda Bull MD Ordered Studies 10/21/22 06:45 EP Lab Images for PACS ONCE Hospital Course (1) Status post placement of cardiac pacemaker: (2) HTN (hypertension): Plan 1. He was brought to the electrophysiology laboratory in the afternoon of October 21, 2022 and a dual-chamber pacemaker was implanted without difficulty. A high septal lead position (near the left bundle branch block) was chosen due to anticipated high frequency of pacing. The paced ventricular electric on Plavix look quite good. He is doing well now postop day #1 after device implantation, the device is working well and the x-ray shows good lead position and no pneumothorax. He is stable for discharge, beta-blockers were added. 2. Hypertension: His blood pressure was significantly elevated and beta- blockade was instituted at a dose of metoprolol succinate 100 mg daily. A prescription was sent in. This can be further adjusted as an outpatient. Total Time Total Time Spent Total Time Spent (In Minutes): 35 Discharge Plan Discharge Items Patient Disposition: Home - Self-Care Reason For Visit: Second Degree AV Block, Bradycardia, PVC's Discharge Diagnosis: Pacemaker implantation Activity: Per Instructions section Lifting: Gradually increase as tolerated Bathing: Keep incision dry Exercise/Sports: Gradually increase as tolerated Driving/Machine Use: No limitations Non-emergency contact: Training Designer Call non-emergency contact if: you have a fever, your wound has increased redness, your wound has increased drainage and your wound pain has increased Follow-up/Referrals: Hope Neal CRNP [Primary Care Provider] - 10/24/22 8:30 am Diet: Heart Healthy Addtl Attending Provider Instructions: ACTIVITY RECOMMENDATIONS: * Do not raise affected arm over head for 2 weeks. SPECIAL CARE INSTRUCTIONS: * If bleeding occurs, apply direct pressure to area for 5 minutes. * Call your doctor if you have severe pain, fever, drainage or bleeding at site. * Keep dressing on and dry for 48 hours then remove. * Keep any scheduled doctor's appointment. * Implant Card - hand held device with website information given. SKIN IRRITATION: * You may experience some redness and/or swelling in the area where radiation was administered. If any skin irritation occurs, please contact your family physician. FOLLOW UP VISIT: Keep any scheduled doctor appointments. Pending Studies at Discharge: No Stand-Alone Forms: My [employer], Smoking Cessation Medications and DC Order Prescriptions: New metoprolol succinate 100 mg capsule,sprinkle,ER 24hr 100 mg PO DAILY Qty: 90 3RF Continued atorvastatin 40 mg tablet 40 mg PO QAM Qty: 90 3RF lisinopril 10 mg tablet 10 mg PO QAM Qty: 90 3RF albuterol sulfate [Ventolin HFA] 90 mcg/actuation HFA aerosol inhaler 1 puffs INH Q6H PRN (Reason: sob) aspirin [Adult Low Dose Aspirin] 81 mg tablet,delayed release (DR/EC) 81 mg PO QAM loratadine 10 mg tablet 10 mg PO DAILY PRN (Reason: Allergy Symptoms) cholecalciferol (vitamin D3) 1,000 unit capsule 1,000 units PO QAM acetaminophen 500 mg capsule 1,000 mg PO Q4 MDD 3g PRN (Reason: Fever Or Pain) Patient Comments: 1,000 mg PO Q8H for 3 days, then 1 capsue Q4H PRN . Do Not Exceed 3000mg every 24 hours PRN; simethicone 80 mg tablet,chewable 80 mg PO Q6 PRN (Reason: bloating,gas) omeprazole 20 mg tablet,delayed release (DR/EC) 20 mg PO DAILY PRN (Reason: Acid Reflux) fluticasone propionate [Flonase Allergy Relief] 50 mcg/actuation spray,suspension 1 spray INTNAS DAILY PRN (Reason: allergy symptoms) Qty: 16 5RF B-100 Complex 100 mg tablet extended release 1 tab PO QAM tamsulosin 0.4 mg capsule 0.4 mg PO QPM Discharge Orders: Discharge Order (Routine); Ordered 10/22/22 Ordered By: Pineda Pereira/Other Patient Handouts: Pacemakers, Living with a Pacemaker Admission Data Admit Date/Time: 10/21/22 14:01 Attending Provider: Pineda Bull Admit Provider: Pineda Bull Primary Care Provider: Hope Neal Other Interventions: Discharge Summary Assessment (RN) Last Done: 10/22/22 10:33 Coding Level of Care Code 25162 Post Operative Follow-Up Diagnoses Status post placement of cardiac pacemaker Z95.0 HTN (hypertension) I10
== END 2022-10-22 11:04 | disposition home or self-care (01) ==
LOC: 2S 11:47 → EP 11:47